=== PATIENT | female | born 1955 | race Caucasian/White ===

== ENCOUNTER 2025-05-19 16:01 | Inpatient (IN) | payer MEDICARE, OTHER, SELFPAY ==
--- OUTSIDE RECORDS SUMMARY | 2025-04-03 10:50 | XMS_ITS ---
Author Organization The [facility] in [place] Address [address] [place] [address] Care Team Providers Care Server Name Role Phone William Conde DO Primary Care Provider Unavail Robert Barnett [phone] REASON FOR VISIT Office Visit Encounters Encounter Location Date Provider Diagnosis Urology [facility] [place] [address] [place] [address] 04/03/2025 Robert Shrestha Plan Of Treatment No Information Progress Notes * Sneha SANTILLAN LDOB: 4 (70 yo F)Acc No.[id number]:04/03/2025 UNLOCKED PROGRESS NOTE Patient: Sneha POWELL Provider: Marianne Shrestha MD :1955 A ge:69 Y S ex:Female Date:04/03/2025 Address:[address] [place], [place] [id number] Pcp:William Conde DO Subjective: * Chief Complaints: * 1 . Office Visit. * Medical History: Objective: * Vitals: Assessment: Plan: * Treatment: * * Electronic signature of Mejia Shrestha MD, [id number] on 05/20/2025 at 06:04 AM EDT Sign off status: Pending Visit Status: C ANC (Cancelled) * Provider: Marianne Shrestha MD Date: 04/03/2025 Generated for Printi ng/Faxing/eTransmitting on: 05/20/2025 06:04 AM EDT
--- OUTSIDE RECORDS SUMMARY | 2025-04-03 10:50 | XMS_ITS ---
Author Organization The [facility] in [place] Address [address] [place] [address] Care Team Providers Care Surgical Physician Assistant Name Role Phone William Conde DO Primary Care Provider Unavail Robert Barnett [phone] REASON FOR VISIT Office Visit Encounters Encounter Location Date Provider Diagnosis Urology [facility] [place] [address] [place] [address] 04/03/2025 Robert Shrestha Plan Of Treatment No Information Progress Notes * Sneha SANTILLAN LDOB: 4 (70 yo F)Acc No.[id number]:04/03/2025 UNLOCKED PROGRESS NOTE Patient: Sneha POWELL Provider: Marianne Shrestha MD :1955 A ge:69 Y S ex:Female Date:04/03/2025 Address:[address] [place], [place] [id number] Pcp:William Conde DO Subjective: * Chief Complaints: * 1 . Office Visit. * Medical History: Objective: * Vitals: Assessment: Plan: * Treatment: * * Electronic signature of Mejia Shrestha MD, [id number] on 05/19/2025 at 04:07 PM EDT Sign off status: Pending Visit Status: C ANC (Cancelled) * Provider: Marianne Shrestha MD Date: 04/03/2025 Generated for Printi ng/Faxing/eTransmitting on: 05/19/2025 04:07 PM EDT
[2025-05-19] VITALS (51 sets, daily range): BP systolic 180–210; BP diastolic 80–110; PULSE 70–109; TEMP 37.1; O2SAT 92–99; BMI 25.4
--- OUTSIDE RECORDS SUMMARY | 2025-05-19 16:07 | XMS_ITS | Encounter Summary ---
Author Organization [facility] Address [address] [place] [address] Phone Care Team Providers Care Tumbler Drier Operator Name Role Phone William Conde DO Primary Care Provider + [phone] Encounter Details Date Type Department Care Team (Late Contact Info) Description 08/07/2024 Scanned Document [facility] [address] [place] [phone] Scanning, Generic Provider Social History Tobacco Use Types Packs/Day Years Used Date Smoking Tobacco: Every Day Cigarettes Smokeless Tobacco: Never Comments:Current everyday sm oker Nicotine filled electronic cigarette user Alcohol Use Standard Drinks/Week Comments Yes 7 (1 standard drink = 0.6 oz pur e alcohol) 1 shot daily PHQ-2 Answer Date Recorded Patient Health Questionnaire-2 Score 0 06/07/2023 Comments Unknown Sex and Gender Information Value Date Recorded Sex Assigned at Not on file Legal Sex Female 9:07 AM EST Gender Identity Not on file Sexual Orientation Not on file COVID-19 Exposure Response Date Recorded In the last 10 days, have yo u been in contact with someone who was confirmed or suspected to have Coronavirus/COVID-19? No / Unsure 08/02/2024 1:30 PM EST documented as of this encounter Plan of Treatment Upcoming Encounters Date Type Department Care Team (Late Contact Info) Description 05/29/2025 10:45 AM EDT Office Visit [facility] [address] [facility] [address] [place] [address] Shannon Almeida MD 917 [facility] [address] [place] [address] documented as of this encounter Procedures Procedure Name Priority Date/Time Associated Diagnosis Comments OUTSIDE LAB SCAN 08/07/2024 documented in this encounter Results * OUTSIDE LAB SCAN (08/07/2024) Narrative 08/07/2024 Ordered by an unspecified provider. Generic Provider Scanning OUTSIDE SCAN Final Result documented in this encounter Visit Diagnoses Not on filedocumented in this encounter Additional Health Concerns Assessment Noted Time A fall risk assessment has been complete d for the patient 08/02/2024 1:48 PM EST documented as of this encounter Care Teams Tumbler Drier Operator Relationship Specialty Start Date End Date William Conde DO [address] [place] [address] PCP - General Internal Medicine 08/02/24 documented as of this encounter
--- OUTSIDE RECORDS SUMMARY | 2025-05-19 16:07 | XMS_ITS | Patient Health Record ---
Author Organization The [facility] in [place] Address [address] [place] [address] Care Team Providers Care Alto Singer Name Role Phone William Conde DO Primary Care Provider Unavail able Robert Shrestha Unavailable [phone] Allergies Allergen (clinical drug ingredient) Drug/Non Drug Allergy documented on EMR Reaction Allergy Type Onset Date Status Cat dander cats (uncoded) Unknown Allergy Acti ve Codeine Sulfate *ANALGESICS - OPIOID* (uncoded) Unknown Allergy Active Mesa corn (uncoded) Unknown Allergy Activ e maple (uncoded) Unknown Allergy Acti ve Substance with penicillin structure and antibacterial mechanism of action (substance) Penicillins (uncoded) trouble breathing Allergy Active soy (uncoded) Unknown Allergy Active TraMADol HCl *ANALGESICS - OPIOID* (uncoded) Unknown Allergy Active Wheat wheat (uncoded) Unknown Allergy Acti ve doxycycline Doxycycline Hyclate does not remember reaction Drug Allergy Active Doxycycline Hyclate *TETRACYCLINES* itching Drug Allergy Active Reason For Referral No Information Medications Medication SIG (Take, Route, Frequency, Duration) Notes Start Date End Date Status Fenofibrate 145 MG Oral; Duration: 90 Days Active Irbesartan 300 MG Oral; Duration: 90 Days Active HYDROcodone-Acetaminophen 5-325 MG 1 tablet as needed Orally every 6 hrs Active Symbicort prn Active Montelukast Sodium 10 MG Oral; Duration: 90 Days Active Triamterene-HCTZ 37.5-25 MG Oral; Duration: 90 Days Acti ve traZODone HCl 150 MG Oral 1/2 tablet at bedtime Active Vitamin D Active Vitamin C Active oxyBUTYnin Chloride ER 10 MG 1 tablet Orally Once a day; Duration: 30 days 03/19/2024 Active Vitamin E Active Myrbetriq 50 MG 1 tablet Orally Once a day; Duration: 30 days 03/19/2024 Active Alendronate Sodium 70 MG 1 Oral once a week 2012 Not-Taking ZyrTEC Allergy Activ e Atorvastatin Calcium 20 MG Oral daily Not-Taking amLODIPine Besylate 5 MG Oral daily Not-Taking Aspirin 81 Active Metaxalone 800 MG 1 Oral three times daily 06/20/2013 Not-Taking Amitiza prn Active Loratadine 10 MG Oral daily N ot-Taking Baclofen prn Active Vitamin D3 2000 UNIT Oral daily Not-Taking Atenolol 50 MG Oral; Duration: 90 Days Active Metoprolol Tartrate 100 MG Oral daily Not-Taking D-Mannose 500 MG as directed Orally Daily Active Crestor Active Womens Daily Formula Oral daily Not-Taking Estradiol 0.1 MG/GM 1 gram Vaginal 2 x a week; Duration: 30 days Active Doxazosin Mesylate A ctive Social History Tobacco Use: Social History Observation Description Date Details (start date - stop date) Current Smoker NA - NA Tobacco Use/Smoking Question Answer Notes Patient is a current smoker Alcohol Screen (Audit-C) Question Answer Notes Did you have a drink containing alcohol in the p ast year? Yes How often did you have a dri nk containing alcohol in the past year? Weekly (3 points) Points 3 Interpretation Positive AUDIT-C (Standard) Question Answer Notes Did you have a drink contain ing alcohol in the past year? Yes How often did you have six o r more drinks on one occasion in the past year? Never (0 point) How many drinks did you have on a typical day when you were drinking in the past year? 1 or 2 drinks (0 point) How often did you have a dri nk containing alcohol in the past year? 2 to 3 times a week (3 points) Points 3 Interpretation Positive Problems Problem Type SNOMED Code ICD Code Onset Dates Problem Status W/U Status Risk Notes Problem Chronic cystitis (74760320) Other chronic cystitis without hematuria (N30.20) Active confirmed Problem Atrophic vaginitis (37139054) Atrophic vaginitis (N95.2) Active confirmed Plan Of Treatment No Information Insurance Providers Payer Name Payer Address Payer Phone Subscriber Number Group Number Insured Name Patient Relationship to Insured Coverage Start Date Coverage End Date MEDICARE [place] [address] [phone] [id number] Sneha James Self - patient is the insured 9 MMO MEDICARE SUPPLEMEN T [address] [place] [address] [id number] Sneha James Self - patient is the insured Medical (General) History Medical History History ICD Code Allergic Rhinitis Frequent sinus infections Hypertension Pneumonia history seasonal asthma Hx of TIA high cholesterol arthritis Covid May 2022 Fibromyalgia Other chronic cystitis without hematuria N30.20 Atrophic vaginitis N95.2 Back problems Surgical History Surgery Date(Month/Year) cholecystectomy Tubal Ligation Tonsils and adenoids Hysterectomy Cholecystectomy Cervical spine fusion Bilateral carpal tunnel releases
--- OUTSIDE RECORDS SUMMARY | 2025-05-19 16:07 | XMS_ITS | Encounter Summary ---
Author Organization [facility] Address [address] [place] [address] Phone Care Team Providers Care Collar Separator Name Role Phone William Conde DO Primary Care Provider + [phone] Encounter Details Date Type Department Care Team (Late st Contact Info) Description 11/07/2024 Scanned Document [facility] [address] [place] [phone] Scanning, Generic Provider Social History Tobacco Use Types Packs/Day Years Used Date Smoking Tobacco: Every Day Cigarettes Smokeless Tobacco: Current Comments:Nicotine filled leydi ctronic cigarette user Alcohol Use Standard Drinks/Week Comments [...] suspected to have Coronavirus/COVID-19? No / Unsure 10/28/2024 12:50 PM EST documented as of this encounter Plan of Treatment Upcoming Encounters Date Type Department Care Team (Late st Contact Info) Description 05/29/2025 10:45 AM EDT Office Visit [facility] 703 [facility] [address] [place] [address] Shannon Almeida MD [address] [facility] [address] [place] [address] documented as of this encounter Visit Diagnoses Not on filedocumented in this encounter Additional Health Concerns Assessment Noted Time A fall risk assessment has been complete d for the patient 10/28/2024 1:23 PM EST documented as of this encounter Care Teams Collar Separator Relationship Specialty Start Date End Date William Conde DO [address] [place] [address] PCP - General Internal Medicine 08/02/24 documented as of this encounter
--- OUTSIDE RECORDS SUMMARY | 2025-05-19 16:07 | XMS_ITS | Clinical Summary ---
Author Organization [employer] [facility] [employer] Address [id number] [address] [place] [address] Care Team Providers Care Concrete Batcher Name Role Phone Amaya Jackson DOWilliam Radhames Primary Care Provider Allergies Active Allergy Reactions Criticality Noted Date Comments Doxycycline Rash Low 02/10/2017 Triamcinolone Acetonide Anxiety Low 03/09/2017 Hyperactivity Penicillins Other (See Comments) High 01/17/2017 Swelling in throat Bupropion Hcl Anxiety Low 05/21/2018 States all SSRIs make her feel more depressed/anxious Medications albuterol (PROVENTIL HFA;VENTOLIN HFA) 90 mcg/actuation inhaler Inhale 2 puffs every 6 (six) hours as needed for wheezing. Active budesonide-form oterol (SYMBICORT) 160-4.5 mcg/actuation inhaler Inhale 2 puffs 2 (two) times a day. Active HYDROcodone-abrahan taminophen (NORCO) 5-325 mg per tablet Take 1 tablet by mouth every 6 (six) hours as needed for pain. Active aspirin 81 mg Take 81 mg by mouth daily. Active baclofen (LIORESAL) 10 mg tablet Take 10 mg by mouth 3 (three) times a day. Active traZODone (DESYREL) 50 mg tablet Take 50 mg by mouth nightly. Active denosumab (PROLIA) 60 mg/mL syringe injection Inject 60 mg under the skin once. Active cetirizine (ZyrTEC) 10 mg tablet Take 10 mg by mouth daily. Active lidocaine (LIDODERM) 5 % Place 1 patch on the skin as needed for pain. Remove & Discard patch within 12 hours or as directed by MD Active carvedilol (COREG) 25 mg tablet Take 25 mg by mouth 2 (two) times a day with meals. Active famotidine (PEPCID) 20 mg tablet Take 20 mg by mouth nightly as needed. Active montelukast (SINGULAIR) 10 mg tablet Take 10 mg by mouth daily. 04/09/2017 Active fenofibrate (TRICOR) 145 mg tablet Take 145 mg by mouth daily. 08/08/2017 Active irbesartan (AVAPRO) 300 mg tablet Take 300 mg by mouth daily. Active multivitamin capsule Take 1 capsule by mouth daily. 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 Encounters Date Type Department Care Team Description 04/25/2025 9:45 AM EDT - 04/25/2025 11:59 PM EDT Hospital Encounter [facility] [address] [place] [address] Sciatic radiculitis Discharge Disposition: Home 04/25/2025 9:15 AM EDT - 04/25/2025 9:44 AM EDT Hospital Encounter [facility] [address] [place] [address] 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, thoracic Discharge Disposition: Home 04/25/2025 Travel 03/03/2025 12:54 PM EDT - 03/03/2025 11:59 PM EDT Hospital Encounter [facility] [address] [place] [address] Visit for screening mammogram Discharge Disposition: Home 03/03/2025 Travel from Last 3 Months Immunizations Immunization Administration Dates Next Due COVID-19, mRNA, LNP-S, PF, 30mcg/0.3mL Dose 10/26,10/20/2020 Family History Medical History Relation Name Comments Heart disease Father Alzheimer's disease Mother Breast cancer Neg Hx Relation Name Status Comments Father Mother Social History Tobacco Use Types Packs/Day Years Used Date Smoking Tobacco: Every Day Cigarettes 1 30 Vaping/E-cigarettes Smokeless Tobacco: Never Alcohol Use Standard Drinks/Week Comments Yes 3 (1 standard drink = 0.6 oz pur e alcohol) Childcare Answer Date Recorded Childcare Unknown 02/06/2019 Employment Answer Date Recorded Employment Unknown 02/06/2019 Purpose - Life Answer Date Recorded Purpose and direction in life Unknown Comments No Sex and Gender Information Value Date Recorded Sex Assigned at Not on file Legal Sex Female 11:46 AM EDT Gender Identity Not on file Sexual Orientation Not on file Last Filed Vital Signs Vital Sign Reading Time Taken Comments Blood Pressure 171/75 09/12/2019 12:17 PM EST Pulse 62 09/12/2019 11:50 AM EST Temperature 36.1 C (97 F) 09/12/2019 10:02 AM EST Respiratory Rate 18 09/12/2019 11:50 AM EST Oxygen Saturation 9% 09/12/2019 11:50 AM EST Inhaled Oxygen Concentration - - Weight 61.2 kg (135 lb) 11/08/2023 10:24 AM EDT Height 162.6 cm (5' 4 ) 11/08/2023 10:24 AM EDT Body Mass Index 23.17 11/08/2023 10:24 AM EDT Plan of Treatment Upcoming Encounters Date Type Department Care Team (Late st Contact Info) Description 05/23/2025 9:15 AM EDT Hospital Encounter [facility] [address] [place] [address] 05/23/2025 9:45 AM EDT Appointment [facility] [address] [place] [address] Health Maintenance Due Date Last Done Comments Tobacco Counseling 1955 Depression Screening 1966 Tobacco Screening 1966 DTaP,Tdap and Td Vaccines (1 - Tdap) 1973 Zoster (Shingles) Vaccine (1 of 2) 2004 Fall Risk Screening 2019 Adult BMI Screening 11/07/2024 11/08/2023 Influenza Vaccine 04/28/2025 06/15/2022, , 06/11/2021, Additional history exists COVID-19 Vaccine Completed 01/28/2025, 01/2024, 01/05/2024, Additional history exists Medical Devices Implanted Type Area Vocational Auto Body Instructor Device Identifier Shelf Expiration Date Model / Serial / Lot Hardware Description:ACDF Procedures Procedure Name Priority Date/Time Associated Diagnosis Comments MAMM SCREENING BILATERAL W CAD Routine 03/03/2025 1:19 PM EDT Visit for screening mammogram from Last 3 Months Results * Mammography screening bilateral with CAD (03/03/2025 1:19 PM EDT) Anatomical Region Laterality Modality Breast Bilateral Mammography 03/03/2025 2:31 PM EDT Narrative 03/03/2025 2:35 PM EDT JOSUÉ SANTILLAN 1955 [id number] EXAM: MAMM SCREENING BILATERAL W CAD, 03/03/2025 12:54 PM CLINICAL INDICATIONS: Screening, Visit for screening mammogram COMPARISON: No prior studies currently available for comparison. TECHNIQUE: Bilateral digital tomosynthesis MLO and CC views of the breasts were obtained, with creation of synthetic 2D views. Computer aided detection was utilized. FINDINGS: There are scattered areas of fibroglandular density. There are no suspicious masses, calcifications, or areas of architectural distortion. Heavy arterial calcification is demonstrated. A marker from previous percutaneous biopsy is displayed in the left breast IMPRESSION: No mammographic evidence of malignancy. BI-RADS: BI-RADS 2 - Benign RECOMMENDATION: Routine screening mammogram in 1 year. RISK ASSESSMENT: TC Lifetime risk: 2.67%. The patient's reported personal and family medical history was used calculate their Tyrer-Cuzick lifetime risk of malignancy. Scores less than 20% are not considered high risk per ACR guidelines and patient should continue with the above recommendation. Finalized by Dany Burt MD on 03/03/2025 2:35 PM 2 b MAMM 1 YR FDA Accredited Performing Facility: [facility] [address] [facility] [id number] Procedure Note Dany Burt MD - 03/03/2025 JOSUÉ SANTILLAN 1955 [id number] EXAM: MAMM SCREENING BILATERAL W CAD, 03/03/2025 12:54 PM CLINICAL INDICATIONS: Screening, Visit for screening mammogram COMPARISON: No prior studies currently available for comparison. TECHNIQUE: Bilateral digital tomosynthesis MLO and CC views of the breastswere obtained, with creation of synthetic 2D views. Computer aideddetection was utilized. FINDINGS: There are scattered areas of fibroglandular density. There are no suspicious masses, calcifications, or areas of architecturaldistortion. Heavy arterial calcification is demonstrated. A marker fromprevious percutaneous biopsy is displayed in the left breast IMPRESSION: No mammographic evidence of malignancy. BI-RADS: BI-RADS 2 - Benign RECOMMENDATION: Routine screening mammogram in 1 year. RISK ASSESSMENT: TC Lifetime risk: 2.67%. The patient's reported personal and family medical history was usedcalculate their Tyrer-Cuzick lifetime risk of malignancy. Scores less than20% are not considered high risk per ACR guidelines and patient shouldcontinue with the above recommendation. Finalized by Dany Burt MD on 03/03/2025 2:35 PM 2 b MAMM 1 YR FDA Accredited Performing Facility: [facility] [address] [facility] [id number] William Conde Jr., DO IMG MAMMOGRAPHY ORDERAB LES Final Result from Last 3 Months Insurance MEDICARE [employer] Care Teams Concrete Batcher Relationship Specialty Start Date End Date William Conde Jr., DO [address] [place] [address] PCP - General Internal Medicine 01/17/17
--- OUTSIDE RECORDS SUMMARY | 2025-05-19 16:07 | XMS_ITS | Encounter Summary ---
Author Organization [facility] Address [address] [place] [address] Phone Care Team Providers Care Data Systems Analyst Name Role Phone William Conde DO Primary Care Provider + [phone] William Conde DO Primary Care Provider + [phone] Encounter Details Date Type Department Care Team (Late st Contact Info) Description 06/11/2021 Orders Only [facility] [address] [place] [address] Conversion, Onbase Social History Tobacco Use Types Packs/Day Years Used Date Smoking Tobacco: Never Assessed Comments Unknown Sex and Gender Information Value Date Recorded Sex Assigned at Not on file Legal Sex Female 9:07 AM EST Gender Identity Not on file Sexual Orientation Not on file documented as of this encounter Plan of Treatment Upcoming Encounters Date Type Department Care Team (Late st Contact Info) Description 05/29/2025 10:45 AM EDT Office Visit [facility] 703 [facility] [address] [place] [address] Shannon Almeida MD 917 [facility] [address] [place] [address] Scheduled Orders Name Type Priority Associated Diagnoses Orde r Schedule OUTSIDE LAB SCAN Lab Ordered: 06/11/2021 documented as of this encounter Visit Diagnoses Not on filedocumented in this encounter Care Teams Data Systems Analyst Relationship Specialty Start Date End Date William Conde DO PCP - General 02/17/20 08/01/24 William Conde DO [address] [place] [address] PCP - General Internal Medicine 08/02/24 documented as of this encounter
--- OUTSIDE RECORDS SUMMARY | 2025-05-19 16:07 | XMS_ITS | Clinical Summary ---
Author Organization [facility] Address [address] 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 Active baclofen (Lioresal) 10 mg tablet Take by mouth if needed. Active denosumab (Prolia) 60 mg/mL syringe Inject under the skin. inject every 6 months Active HYDROcodone-acetami nophen (Baggs) 5-325 mg tablet TAKE 1 TABLET EVERY 6 HOURS NEEDED. Active irbesartan (Avapro) 300 mg tablet Take 1 tablet (300 mg) by mouth once daily. 2 Active montelukast (Singulair) 10 mg tablet Take 1 tablet (10 mg) by mouth once daily at bedtime. Active traZODone (Desyrel) 100 mg tablet Take 1 tablet (100 mg) by mouth once daily at bedtime. Active ascorbic acid (Vitamin C) 1,000 mg tablet Take 1 tablet (1,000 mg) by mouth once daily. Active aspirin 81 mg EC tablet Take 1 tablet (81 mg) by mouth once daily. Active cholecalciferol (Vitamin D3) 25 MCG (1000 UT) tablet Take 1 tablet (1,000 Units) by mouth once daily. Active thiamine 100 mg tablet Take 1 tablet (100 mg) by mouth once daily. Active fish oil ([place]-3) 60-90-500 mg capsuleIndications: Essential hypertriglyceridemi a,Mixed hyperlipidemia Take 1 capsule (500 mg) by mouth once daily. 2000mg daily 5 Active atenolol (Tenormin) 50 mg tabletIndications:B enign essential hypertension Take 1 tablet (50 mg) by mouth once daily. 90 tablet 3 5 10/29/19 Active doxazosin (Cardura) 4 mg tabletIndications:E ssential hypertriglyceridemi a,Mixed hyperlipidemia,Curr ent every day smoker,Body mass index (BMI) 23.0-23.9, adult,Medication course changed Take 1 tablet (4 mg) by mouth once daily at bedtime. 90 tablet 3 5 10/29/19 26 Active fenofibrate (Tricor) 145 mg tabletIndications:E ssential hypertriglyceridemi a,Benign essential hypertension,Mixed hyperlipidemia,Enco unter to discuss test results,Pre-diabete s,Current every day smoker,Body mass index (BMI) 23.0-23.9, adult,Medication course changed,Elevated coronary artery calcium score,Other fatigue Take 1 tablet (145 mg) by mouth once daily. 90 tablet 3 5 10/29/19 Active rosuvastatin (Crestor) 5 mg tabletIndications:E ssential hypertriglyceridemi a,Benign essential hypertension,Mixed hyperlipidemia,Enco unter to discuss test results,Pre-diabete s,Current every day smoker,Body mass index (BMI) 23.0-23.9, adult,Medication course changed,Elevated coronary artery calcium score,Other fatigue Take 1 tablet (5 mg) by mouth once daily. 90 tablet 3 5 10/29/19 Active triamterene-hydroch lorothiazid (Maxzide-25) 37.5-25 mg tabletIndications:B enign essential hypertension Take 1 tablet by mouth once daily. 90 tablet 3 5 10/29/19 Active Active Problems Problem Noted Date Diagnosed Date Encounter to discuss test results 10/28/2024 Pre-diabetes 10/28/2024 Elevated coronary artery calcium score 5 Other fatigue 10/28/2024 Resistant hypertension 08/02/2024 Mixed hyperlipidemia 08/02/2024 Encounter to establish care with new doctor 01/2024 Medication course changed 08/02/2024 Benign essential hypertension 05/03/2023 Current every day smoker 05/03/2023 Essential hypertriglyceridemia 05/03/2023 Body mass index (BMI) 23.0-23.9, adult 3 Resolved Problems Problem Noted Date Diagnosed Date Resolved Date Snores 10/28/2024 10/28/2024 Immunizations Immunization Administration Dates Next Due Flu vaccine (IIV4), preserva tive free *Check age/dose* 08/04/2017,05/28/2017 Flu vaccine, quadrivalent, recombinant, preservative free, adult (FLUBLOK) 07/12/2019,07/11/2018 Flu vaccine, trivalent, pres ervative free, HIGH-DOSE, age 65y+ (Fluzone) 06/15/2022,06/25/2021,06/11/2021,05/28,05/05/2020,07/28/2019,06/06/2019 Flu vaccine, trivalent, pres ervative free, age 6 months and greater (Fluarix/Fluzone/Flulaval) 06/29/2016,07/08/2015,05/31/2012 Hepatitis B vaccine, adult * Check Product/Dose* 08/08/2008,03/06/2008,02/05/2008 Influenza Whole 06/07/2010 Influenza, injectable, quadr ivalent, preservative free, pediatric 06/23/2014 Pfizer COVID-19 vaccine, biv alent, age 12 years and older (30 mcg/0.3 mL) 09/08/2022 Pfizer Bryan Cap SARS-CoV-2 01/31/2022 Pneumococcal conjugate vacci ne, 13-valent (PREVNAR 13) 07/28/2019,07/12/2019 Pneumococcal polysaccharide vaccine, 23-valent, age 2 years and older (PNEUMOVAX 23) 10/28/2021,11/05/2019,07/28/2018,06/30,05/31/2012 Family History Medical History Relation Name Comments Arthritis Father degenerative CABG Father X4 Dementia Mother Hypertension Mother Skin cancer Mother Cervical cancer Sister Diabetes Sister Hypertension Sister high triglycerides Sister Relation Name Status Comments Father Mother Sister Social History Tobacco Use Types Packs/Day Years Used Date Smoking Tobacco: Every Day Cigarettes Smokeless Tobacco: Current Tobacco Cessation:Ready to Q uit: Not Asked; Counseling Given: Yes Comments:Nicotine filled electronic cigarette user Alcohol Use Standard [...] Sign Reading Time Taken Comments Blood Pressure 138/78 10/28/2024 1:22 PM EST Pulse 64 10/28/2024 1:22 PM EST Temperature - - Respiratory Rate - - Oxygen Saturation - - Inhaled Oxygen Concentration - - Weight 69.4 kg (153 lb) 10/28/2024 1:22 PM EST Height 162.6 cm (5' 4 ) 10/28/2024 1:22 PM EST Body Mass Index 26.26 10/28/2024 1:22 PM EST Plan of Treatment Upcoming Encounters Date Type Department Care Team (Late st Contact Info) Description 05/29/2025 10:45 AM EDT Office Visit [address] [place] [address] Shannon Almeida MD [address] [facility] [address] [place] [address] Health Maintenance Due Date Last Done Comments CT Colonography 1955 Colonoscopy 1955 Colorectal Cancer Screening 1955 Echocardiogram 1955 FIT-DNA (Cologuard) 1955 FIT 1955 Lipid Panel 1955 Sigmoidoscopy 1955 MMR Vaccines (1 of 1 - Standard series) 1955 Diabetes Screening 1972 Hepatitis C Screening 1972 DTaP/Tdap/Td Vaccines (1 - Tdap) 1976 Zoster Vaccines (1 of 2) 2004 Creatinine Level 02/16/2021 02/17/2020 Potassium Level 02/16/2021 02/17/2020 Bone Density Scan 06/19/2022 06/19/2020, 06/19/2020 Medicare Annual Wellness Visit (AWV) 11/03/2023 11/01/2022, 11/01/2021, 05/05/2020 Mammogram 11/07/2024 11/08/2023, 10/26, 09/28/2022, Additional history exists COVID-19 Vaccine ( season) 2025 08/02/2024, 01/05/2024, 06/11/2023, Additional history exists Influenza Vaccine (#1) 2025 , 06/25/2021, 06/11/2021, Additional history exists RSV High Risk: (Elderly (60+) or Population) (1 - 1-dose 75+ series) 2029 Hepatitis B Vaccines Completed 08/08/2008, 03/06/2008, 02/05/2008 Pneumococcal Vaccine Completed 10/28/2021, 11/05/2019, 07/28/2019, Additional history exists HIB Vaccines Aged Out No longer eligi ble based on patient's age to complete this topic HPV Vaccines Aged Out No longer eligi ble based on patient's age to complete this topic Hepatitis A Vaccines Aged Out No long er eligible based on patient's age to complete this topic IPV Vaccines Aged Out No longer eligi ble based on patient's age to complete this topic Meningococcal Vaccine Aged Out No michelle jennifer eligible based on patient's age to complete this topic Rotavirus Vaccines Aged Out No longer eligible based on patient's age to complete this topic Procedures Procedure Name Priority Date/Time Associated Diagnosis Comments ELECTROLYTE PANEL Routine 02/17/2020 12: 02 PM EDT CREATININE Routine 02/17/2020 12:02 PM EDT from Last 3 Months or Most Recently Relevant to Health Maintenance Results * Creatinine (02/17/2020 12:02 PM EDT) Creatinine 0.92 0.50 - 1.05 mg/dL [facility] GLOMERULAR FILTRATION RATE-NON >60 >60 mL/min/1.7 3m2 [facility] GLOMERULAR FILTRATION RATE- >60 >60 mL/min/1.7 3m2 [facility] Comment: CALCULATIONS OF ESTIMATED GFR ARE PERFORMED USING THE MDRD STUDY EQUATION FOR THE IDMS-TRACEABLE CREATININE METHODS. CLIN CHEM 2007;53:766-72 02/17/2020 12:0 2 PM EDT 02/17/2020 5:41 PM EDT Hiram Leyva MD LAB BLOOD ORDERABLES Final Result [facility] * (ABNORMAL) Electrolyte Panel (02/17/2020 12:02 PM EDT) Sodium 131(L) 136 - 145 mmol/L [facility] Potassium 3.9 3.5 - 5.3 mmol/L [facility] Chloride 93(L) 98 - 107 mmol/L [facility] Bicarbonate 30 21 - 32 mmol/L [facility] Anion Gap 12 10 - 20 mmol/L [facility] 02/17/2020 12:0 2 PM EDT 02/17/2020 5:41 PM EDT Hiram Leyva MD LAB BLOOD ORDERABLES Final Result [facility] from Last 3 Months or Most Recently Relevant to Health Maintenance Insurance MEDICARE PART A AND B [employer] SUPPLEMENT MEDICARE PART A AND [employer] [place] MEDICARE SUPPLEMENT Care Teams Deicer Kit Assembler Relationship Specialty Start Date End Date William Conde DO [address] [place] [id number] PCP - General Internal Medicine 08/02/24
--- NOTE | 2025-05-19 16:34 | ECG_ITS ---
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 Measurements Intervals [place] Rate: 82 P: 53 VA: 174 QRS: 35 QRSD: 84 T: 28 QT: 394 QTc: 433 Interpretive Statements 1100 Sinus rhythm 6220 Possible left atrial enlargement 9130 borderline ECG No previous ECG available for comparison Electronically Signed On 05-19-2025 17:18:10 EDT by REDD العراقي M.D.
[2025-05-19] MEDS: HYDRALAZINE HCL 20 MG/ML VIAL 10 MG IVP (16:58)
[2025-05-19 17:02] LABS: Hematocrit 44.1 % (36.0-48.0); Hemoglobin 15.6 g/dL (12.0-16.0); Immature Granulocytes Abs Auto 0.05 10^3/uL (0.00-0.03); Immature Granulocytes Pct Auto 0.4 % (0.0-0.5); Lymphocytes Absolute Auto 1.6 10^3/uL (1.2-3.8); Mean Corpuscular HGB Conc 35.4 g/dL (29.9-35.2); Mean Corpuscular Hemoglobin 30.1 pg (26.7-34.0); Mean Corpuscular Volume 85.0 fL (81.0-99.0); Platelet Count 276 10^3/uL (150-450); Red Blood Count 5.19 10^6/uL (4.20-5.40); White Blood Count 12.7 10^3/uL (4.0-11.0)
--- NOTE | 2025-05-19 17:05 | CT_ITS ---
The [address] [address] Patient Name: JOSUÉ SANTILLAN MRN: [id number] date: 1955 Sex: F Assigned Patient Location: ED.MAIN Current Patient Location: ED.MAIN Accession/Order Number: [id number] Exam Date: 05/19/2025 17:02 Report Date: 05/19/2025 17:24 At the request of: PASHA MENDEZ MD Procedure: CT head/brain wo con CT BRAIN WITHOUT CONTRAST: CLINICAL HISTORY: headache COMPARISON: None TECHNIQUE: Contiguous axial unenhanced images were obtained through the brain. This CT exam was performed using one or more following dose reduction techniques: Automated exposure control, adjustment of the mA and/or kV according to patient size, or use of iterative reconstruction technique. FINDINGS: There is no evidence of midline shift, intra or extra-axial fluid collection, hemorrhage or CT evidence of acute large vascular distribution stroke. Mild periventricular subcortical hypoattenuation suggestive of chronic small vessel ischemic disease. Intracranial vascular calcification. Visualized intraorbital contents appear unremarkable. Mild paranasal sinus thickening. No air-fluid levels. The surrounding soft tissues are normal. CT/CT head/brain wo con IMPRESSION: NO ACUTE INTRACRANIAL ABNORMALITY. CHRONIC MICROVASCULAR CHANGES. Impression dictated by: Olivier Gallardo M.D. 05/19/2025 5:24 PM Dictation Location: [place] [address] Electronically authenticated by: [id number] Y Date: 05/19/2025 17:24
--- NOTE | 2025-05-19 17:11 | ED_ITS ---
HPI HPI - General Adult General Chief complaint: Headache Stated complaint: Possible CVA Time Seen by Provider: 05/19/25 16:25 Source: patient Mode of arrival: walk-in Limitations: no limitations History of Present Illness HPI narrative: The patient is a 70 years old female who is coming to the ER after she was evaluated in urgent care for headache and apparently was found to have elevated blood pressure above 200, the patient mentioned that she also has been having some cough, she has history of smoking cigarette less than 1 pack/day. The patient also have a history of asthma and she used inhaler on a daily basis Patient is complaining also shortness of breath in addition to the right sided headache, there is no nausea no vomiting and the patient have a feeling that she is thirsty all the time There is no chest pain or chest pressure Related Data Allergies Allergy/AdvReac Type Severity Reaction Status Date / Time carvedilol (From Coreg) Allergy Severe Swelling Verified 05/19/25 17:03 of Lip/Tongue/Throat doxycycline Allergy Severe Swelling Verified 05/19/25 17:02 of Lip/Tongue/Throat gabapentin Allergy Severe Swelling Verified 05/19/25 17:03 of Lip/Tongue/Throat Penicillins Allergy Severe Swelling Verified 05/19/25 17:03 of Lip/Tongue/Throat Opioid HPI Opioid Management Most Recent Opioid Data: Last Pain Scale 8 Today, 17:26 Last MAR Pain Assessment Today, 17:26 Review of Systems ROS Status of ROS 10 or more systems reviewed and unremark able except as noted in history and below PFSH PFSH Social History Little interest or pleasure in doing things: not at all Feeling down, depressed, or hopeless: not at all Exam Narrative Exam Narrative: Nurses notes and vital signs reviewed and patient is not hypoxic. General: Well-appearing and in no apparent distress. Skin: Warm, dry, no pallor noted. No rash. Head: Normocephalic, atraumatic. Neck: Supple, non-tender. Eye: Pupils are equal, round and EOMI. No scleral icterus. Ears, Nose, Mouth, and Throat: There is a bilateral ear cerumen on ear examination Cardiovascular: Regular Rate and Rhythm without murmur, gallop or rub. Respiratory: No accessory muscle use or respiratory distress. Lungs are clear to auscultation, no wheezing, rales or rhonchi Chest Wall: no tenderness Back: No midline thoracic or lumbar vertebral tenderness. No CVA tenderness Musculoskeletal: normal ROM, no calf or popliteal tenderness, no lower extremity edema/swelling GI: Abdomen is soft, non-distended. Normal bowel sounds. No masses appreciated. No tenderness to palpation. No rebound, guarding, or rigidity noted. Neurological: A&O x4. No cranial nerve dysfunction observed. The patient is noted to be very anxious Constitutional Vital Signs, click to edit/add: Last Vital Signs Temp 98.7 F 05/19/25 16:18 Pulse 108 H 05/19/25 18:16 Resp 16 05/19/25 18:16 BP 200/90 H 05/19/25 18:16 Pulse Ox 97 05/19/25 18:16 O2 Del Method Room Air 05/19/25 18:16 Course Vital Signs Vital signs: Vital Signs Temperature 98.7 F 05/19/25 16:18 Pulse Rate 92 H 05/19/25 16:18 Respiratory Rate 16 05/19/25 16:18 Blood Pressure 210/80 H 05/19/25 16:18 Pulse Oximetry 96 05/19/25 16:18 Oxygen Delivery Method Room Air 05/19/25 16:18 Temperature 98.7 F 05/19/25 16:18 Pulse Rate 108 H 05/19/25 18:16 Respiratory Rate 16 05/19/25 18:16 Blood Pressure 200/90 H 05/19/25 18:16 Pulse Oximetry 97 05/19/25 18:16 Oxygen Delivery Method Room Air 05/19/25 18:16 Medical Decision Making MDM Narrative Medical decision making narrative: The patient EKG showing sinus rhythm with a heart rate [address] elevation or depression but there is only T wave inversion in lead III The patient CBC shows white blood cells of 12 and the chemistry was showing some hyponatremia with a sodium of 127 and potassium 3.1 chloride is 89 Presenting close the patient came with headache and blood pressure with elevated above 200 initially she was provided with hydralazine after which her blood pressure responded to 190 systolic It was noted that the patient is very anxious and she is sometimes pounding her leg against the floor saying that she is very anxious I did give initially the patient some Toradol and she took her Percocet that she takes at home But I also provided the patient with Valium 2.5 mg after I noted that her blood pressure is staying elevated and with the fact that she is very anxious is not helping controlling her blood pressure CT of the head showed no acute pathology Chest x-ray shows possible mild pulmonary edema although the patient does not have any findings on auscultation at the moment no leg edema Awaiting the blood pressure to respond to treatment in addition to repeated troponin and BNP as well as BMP results patient care transferred to Dr. Smith Lab Data Labs: Lab Results 05/19/25 Range/Units 16:50 WBC 12.7 H (4.0-11.0) 10^3/uL RBC 5.19 (4.20-5.40) 10^6/uL Hgb 15.6 (12.0-16.0) g/dL Hct 44.1 (36.0-48.0) % MCV 85.0 (81.0-99.0) fL MCH 30.1 (26.7-34.0) pg MCHC 35.4 H (29.9-35.2) g/dL RDW 13.8 (11.0-15.0) % Plt Count 276 (150-450) 10^3/uL MPV 9.7 (9.5-13.5) fL Neut % (Auto) 81.1 H (43.0-75.0) % Lymph % (Auto) 12.9 L (20.5-60.0) % Stanton % (Auto) 5.4 (1.7-12.0) % Eos % (Auto) 0.0 L (0.9-7.0) % Baso % (Auto) 0.2 (0.2-2.0) % Neut # (Auto) 10.3 H (1.4-6.5) 10^3/uL Lymph # (Auto) 1.6 (1.2-3.8) 10^3/uL Stanton # (Auto) 0.7 (0.3-0.8) 10^3/uL Eos # (Auto) 0.0 (0.0-0.7) 10^3/uL Baso # (Auto) 0.0 (0.0-0.1) 10^3/uL Abs Immat Gran (auto) 0.05 H (0.00-0.03) 10^3/uL Imm/Tot Granulo (auto) 0.4 (0.0-0.5) % PT 10.9 (9.0-11.6) sec INR 1.03 Sodium 127 L (136-145) mmol/L Potassium 3.1 L (3.5-5.1) mmol/L Chloride 89 L (98-107) mmol/L Carbon Dioxide 30.7 (21.0-32.0) mmol/L Anion Gap 10.4 BUN 17.0 (7.0-18.0) mg/dL Creatinine 0.93 (0.55-1.02) mg/dL Est GFR ( Amer) >60 (>=60 mL/min/1.73m^2) Est GFR (Non-Af Amer) 59 L (>=60 mL/min/1.73m^2) BUN/Creatinine Ratio 18.3 Glucose 111 H (74-106) mg/dL Calcium 9.8 (8.5-10.1) mg/dL Total Bilirubin 1.0 (0.2-1.0) mg/dL AST 24 (15-37) U/L ALT 27 (14-59) U/L Alkaline Phosphatase 49 (46-116) U/L Troponin I High Sens 17.2 (4.0-51.3) pg/mL Total Protein 8.2 (6.4-8.2) g/dL Albumin 4.8 (3.4-5.0) g/dL Globulin 3.4 g/dL Albumin/Globulin Ratio 1.4 Discharge Plan Discharge Patient Disposition: Still a Patient
[2025-05-19 17:21] LABS: INR 1.03; Prothrombin Time 10.9 sec (9.0-11.6)
[2025-05-19 17:26] LABS: Alanine Aminotransferase 27 U/L (14-59); Albumin Globulin Ratio 1.4; Albumin Level 4.8 g/dL (3.4-5.0); Alkaline Phosphatase 49 U/L (46-116); Anion Gap 10.4; Aspartate Amino Transferase 24 U/L (15-37); Blood Urea Nitrogen 17.0 mg/dL (7.0-18.0); Calcium 9.8 mg/dL (8.5-10.1); Carbon Dioxide 30.7 mmol/L (21.0-32.0); Chloride 89 mmol/L (98-107); Estimated GFR (African America >60 (>=60 mL/min/1.73m^2); Estimated GFR (Non-African Ame 59 (>=60 mL/min/1.73m^2); Globulin 3.4 g/dL; Glucose 111 mg/dL (74-106); Potassium 3.1 mmol/L (3.5-5.1); Sodium 127 mmol/L (136-145); Total Protein 8.2 g/dL (6.4-8.2)
[2025-05-19] MEDS: KETOROLAC TROMETHAMINE 30 MG/ML VIAL 15 MG IVP (17:26)
--- NOTE | 2025-05-19 17:35 | XR_ITS ---
The [address] [address] Patient Name: JOSUÉ SANTILLAN MRN: [id number] date: 1955 Sex: F Assigned Patient Location: ER Current Patient Location: ED.MAIN Accession/Order Number: [id number] Exam Date: 05/19/2025 17:30 Report Date: 05/19/2025 18:21 At the request of: PASHA MENDEZ MD Procedure: XR chest 1V Single AP view CHEST: CLINICAL HISTORY: sob and htn COMPARISON: None Mildly enlarged cardiomediastinal silhouette. Minor central hilar congestion. Mild interstitial edema. Lungs otherwise clear. No effusion or pneumothorax. XR/XR chest 1V IMPRESSION: Minimal pulmonary edema/congestion. No acute airspace disease. Impression dictated by: Olivier Gallardo M.D. 05/19/2025 6:21 PM Dictation Location: [place] [address] Electronically authenticated by: [id number] Y Date: 05/19/2025 18:21
[2025-05-19] MEDS: DIAZEPAM 10 MG/2 ML SYRINGE 2.5 MG IV (18:51)
[2025-05-19 19:25] LABS: Anion Gap 11.2; Blood Urea Nitrogen 17.0 mg/dL (7.0-18.0); Calcium 9.8 mg/dL (8.5-10.1); Carbon Dioxide 30.6 mmol/L (21.0-32.0); Chloride 90 mmol/L (98-107); Estimated GFR (African America >60 (>=60 mL/min/1.73m^2); Estimated GFR (Non-African Ame 59 (>=60 mL/min/1.73m^2); Glucose 117 mg/dL (74-106); Sodium 129 mmol/L (136-145)
[2025-05-19 19:27] LABS: NT Pro B Type Natriuretic Pept 878.0 pg/mL (<=900.0); Potassium 2.8 mmol/L (3.5-5.1)
[2025-05-19] MEDS: CLONIDINE HCL 0.1 MG TABLET PO (20:39)
[2025-05-19] MEDS: POTASSIUM CHLORIDE 10 MEQ ER TABLET 40 MEQ PO (20:39)
[2025-05-19] MEDS: LABETALOL HCL 20 MG/4 ML SYRINGE 10 MG IVP ×2 (21:32→23:06)
[2025-05-20] VITALS (33 sets, daily range): BP systolic 155–218; BP diastolic 74–106; PULSE 67–92; TEMP 36.4–36.8; O2SAT 93–97; BMI 26.4
[2025-05-20] MEDS: LABETALOL HCL 100 MG/20 ML MDV 10 MG IVP (00:12)
--- NOTE | 2025-05-20 00:17 | ED.GENADUL1 ---
HPI HPI - General Adult General Chief complaint: Headache Stated complaint: Possible CVA Time Seen by Provider: 05/19/25 16:25 Source: patient Mode of arrival: walk-in Limitations: no limitations Related Data Home Medications ?Medication ?Instructions ?Recorded ?Confirmed atenolol 50 mg tablet 50 mg PO Q24H 05/20/25 05/20/25 baclofen 10 mg tablet 10 mg PO .Q12 05/20/25 05/20/25 fenofibrate nanocrystallized 145 145 mg PO DAILY 05/20/25 05/20/25 mg tablet irbesartan 300 mg tablet 300 mg PO DAILY 05/20/25 05/20/25 montelukast 10 mg tablet 10 mg PO PRN 05/20/25 05/20/25 oxycodone-acetaminophen 10 mg-325 1 tab PO Q6H 05/20/25 05/20/25 mg tablet rosuvastatin 5 mg tablet 5 mg PO DAILY 05/20/25 05/20/25 trazodone 100 mg tablet 100 mg PO DAILY 05/20/25 05/20/25 triamterene 37.5 1 tab PO DAILY 05/20/25 05/20/25 mg-hydrochlorothiazide 25 mg tablet Allergies Allergy/AdvReac Type Severity Reaction Status Date / Time carvedilol (From Coreg) Allergy Severe Swelling Verified 05/19/25 17:03 of Lip/Tongue/Throat doxycycline Allergy Severe Swelling Verified 05/19/25 17:02 of Lip/Tongue/Throat gabapentin Allergy Severe Swelling Verified 05/19/25 17:03 of Lip/Tongue/Throat Penicillins Allergy Severe Swelling Verified 05/19/25 17:03 of Lip/Tongue/Throat Opioid HPI Opioid Management Most Recent Opioid Data: Last Pain Scale 8 05/19/25, 17:26 Last Pain Assessment Today, 02:00 Last MAR Pain Assessment 05/19/25, 17:26 Last ORT Total Score 1 Today, 01:37 Last ORT Risk Category Low Risk Today, 01:37 [facility] Medical History (Updated 05/20/25 @ 02:56 by Anju Hadley) Asthma ?J45.909 - Unspecified asthma, uncomplicated (ICD-10) Hx of deep venous thrombosis ?Z86.718 - Personal history of other venous thrombosis and embolism (ICD-10) History of TIA (transient ischemic attack) ?Z86.73 - Personal history of transient ischemic attack (TIA), and cerebral infarction without residual deficits (ICD-10) Surgical History (Updated 05/20/25 @ 01:34 by Anju Hadley) History of cholecystectomy ?Z90.49 - Acquired absence of other specified parts of digestive tract (ICD-10) H/O hysterectomy with oophorectomy History of appendectomy ?Z90.49 - Acquired absence of other specified parts of digestive tract (ICD-10) Family History (Updated 05/20/25 @ 01:34 by Anju Hadley) Other Family history of CHF (congestive heart failure) Family history of cancer Family history of hypertension Social History (Updated 05/20/25 @ 01:37 by Anju Hadley) Within the past year, how often did you have a drink containing alcohol: monthly or less Smoking status: Current every day smoker Non-prescribed substance use: denies use Previous occupational history: retired Highest level of school completed/degree received: Bachelor's degree In a typical week, how many times do you talk on the telephone with family, friends, or neighbors: 3 or more times per week How often do you get together with friends or relatives: 3 or more times per week Little interest or pleasure in doing things: not at all Feeling down, depressed, or hopeless: not at all Feel stressed/tense/nervous/anxious/difficulty sleeping: not at all Do you think of yourself as: straight/heterosexual Gender Identity: female Exam Constitutional Vital Signs, click to edit/add: Last Vital Signs Temp 97.8 F 05/20/25 03:13 Pulse 77 05/20/25 06:00 Resp 16 05/20/25 03:13 BP 155/88 H 05/20/25 04:11 Pulse Ox 97 05/20/25 03:13 O2 Del Method Room Air 05/20/25 03:13 Course Vital Signs Vital signs: Vital Signs Temperature 98.7 F 05/19/25 16:18 Pulse Rate 92 H 05/19/25 16:18 Respiratory Rate 16 05/19/25 16:18 Blood Pressure 210/80 H 05/19/25 16:18 Pulse Oximetry 96 05/19/25 16:18 Oxygen Delivery Method Room Air 05/19/25 16:18 Temperature 97.8 F 05/20/25 03:13 Pulse Rate 77 05/20/25 06:00 Respiratory Rate 16 05/20/25 03:13 Blood Pressure 155/88 H 05/20/25 04:11 Pulse Oximetry 97 05/20/25 03:13 Oxygen Delivery Method Room Air 05/20/25 03:13 Medical Decision Making Lab Data Labs: Lab Results 05/19/25 05/19/25 Range/Units 16:50 18:50 WBC 12.7 H (4.0-11.0) 10^3/uL RBC 5.19 (4.20-5.40) 10^6/uL Hgb 15.6 (12.0-16.0) g/dL Hct 44.1 (36.0-48.0) % MCV 85.0 (81.0-99.0) fL MCH 30.1 (26.7-34.0) pg MCHC 35.4 H (29.9-35.2) g/dL RDW 13.8 (11.0-15.0) % Plt Count 276 (150-450) 10^3/uL MPV 9.7 (9.5-13.5) fL Neut % (Auto) 81.1 H (43.0-75.0) % Lymph % (Auto) 12.9 L (20.5-60.0) % Florence % (Auto) 5.4 (1.7-12.0) % Eos % (Auto) 0.0 L (0.9-7.0) % Baso % (Auto) 0.2 (0.2-2.0) % Neut # (Auto) 10.3 H (1.4-6.5) 10^3/uL Lymph # (Auto) 1.6 (1.2-3.8) 10^3/uL Florence # (Auto) 0.7 (0.3-0.8) 10^3/uL Eos # (Auto) 0.0 (0.0-0.7) 10^3/uL Baso # (Auto) 0.0 (0.0-0.1) 10^3/uL Abs Immat Gran (auto) 0.05 H (0.00-0.03) 10^3/uL Imm/Tot Granulo (auto) 0.4 (0.0-0.5) % PT 10.9 (9.0-11.6) sec INR 1.03 D-Dimer 0.38 (<=0.59) mg/L FEU Sodium 127 L 129 L (136-145) mmol/L Potassium 3.1 L 2.8 L* (3.5-5.1) mmol/L Chloride 89 L 90 L (98-107) mmol/L Carbon Dioxide 30.7 30.6 (21.0-32.0) mmol/L Anion Gap 10.4 11.2 BUN 17.0 17.0 (7.0-18.0) mg/dL Creatinine 0.93 0.94 (0.55-1.02) mg/dL Est GFR ( Amer) >60 >60 (>=60 mL/min/1.73m^2) Est GFR (Non-Af Amer) 59 L 59 L (>=60 mL/min/1.73m^2) BUN/Creatinine Ratio 18.3 18.1 Glucose 111 H 117 H (74-106) mg/dL Calcium 9.8 9.8 (8.5-10.1) mg/dL Total Bilirubin 1.0 (0.2-1.0) mg/dL AST 24 (15-37) U/L ALT 27 (14-59) U/L Alkaline Phosphatase 49 (46-116) U/L Troponin I High Sens 17.2 19.2 (4.0-51.3) pg/mL NT-Pro-B Natriuret Pep 878.0 (<=900.0) pg/mL Total Protein 8.2 (6.4-8.2) g/dL Albumin 4.8 (3.4-5.0) g/dL Globulin 3.4 g/dL Albumin/Globulin Ratio 1.4 Discharge Plan Discharge Chief Complaint: Headache Clinical Impression: Headache, CHF (congestive heart failure), Hypertensive urgency Patient Disposition: Admitted as Observation Discharge Date/Time: 05/20/25 01:25
--- NOTE | 2025-05-20 01:47 | CA_ITS ---
Patient Name: JOSUÉ SANTILLAN MR#: [id number] : 1955 Exam Date: 05/20/2025 Ordering Doctor: SAYRA ROBERTSON ECHOCARDIOGRAM REPORT PROCEDURE: CA ECHO DOPPLER COMPLETE INDICATIONS: CHF, smoker, hypertension COMPARISON: None. DESCRIPTION: COMPLETE ECHOCARDIOGRAM Real-time transthoracic echocardiography with 2D, M-mode, spectral and color flow Doppler performed. QUALITY: Technical quality was good. LEFT VENTRICLE: Small chamber size. Severe concentric left ventricular hypertrophy. Hyperdynamic systolic function. LV EF: Hyperdynamic left ventricular ejection fraction, (75%). DIASTOLIC: Grade I diastolic dysfunction. Doppler data indicate elevated left-atrial filling pressures. ATRIAL SEPTUM: Visually appears intact. LEFT ATRIUM: Mild dilatation. RIGHT ATRIUM: Normal chamber size. RIGHT VENTRICLE: Normal chamber size. Normal right ventricular systolic function. TRICUSPID VALVE: Normal mobility and thickness. No stenosis with no regurgitation. Unable to assess right-sided pressures due to lack of measurable tricuspid regurgitation. MITRAL VALVE: Normal mobility and thickness. No evidence of mitral valve stenosis. Mild mitral annular calcification. Trivial mitral regurgitation. AORTIC VALVE: Normal trileaflet appearance. No visible sclerosis. Normal leaflet mobility. No evidence of aortic valve stenosis. AORTIC ROOT: Normal diameter and appearance, measuring 3.5 cm. Ascending aorta is normal in size, measuring 2.7 cm. PULMONIC VALVE: Normal thickness and mobility. No stenosis. No regurgitation. PERICARDIUM: No evidence of pericardial effusion. IVC: Collapses with inspiration. IVC is normal in size. PLEURA: CONCLUSION: 1. The left ventricle exhibits severe concentric hypertrophy with hyperdynamic contractility. The ventricular cavity is small. Estimated LVEF is 75%. 2. Normal right ventricular size and systolic function. 3. No significant valvular dysfunction. 4. Grade 1 diastolic dysfunction. Doppler data indicate elevated left atrial filling pressures. 5. Unable to assess right-sided pressures due to lack of measurable tricuspid regurgitation. Adult Echocardiography Procedure Report Left Ventricle LVEDD (3.7 - 5.6 cm): 3.58 cm LVESD (2.2 - 4.0 cm): 1.92 cm LVIVS thickness (0.6 - 1.2 cm): 1.77 cm LVPW thickness (0.5 - 1.0 cm): 1.38 cm e': 0.04 m/s E - e': 17.05 LVOT Max Gradient: 4.18 mm[Hg] LVOT Area (cm2): 1.02 m/s Peak Velocity (LVOT): 1.02 m/s Mean Velocity (LVOT): 0.69 m/s LVOT Diameter 2.04 cm Left Ventricular Ejection Fraction: 75 % Left Atrium LA Volume Index (2D A2C): 43.26 ml/m2 Left Atrium Systolic Dimension: 2.84 cm Mitral Valve MV E to A Ratio: 0.52 Mitral Valve A-Wave Peak Velocity: 1.39 m/s Mitral Valve E-Wave Peak Velocity: 0.73 m/s Right Ventricle Aorta AO Root Diam: 3.52 cm Ascending Ao Diam: 2.72 cm Aortic Valve AoV Area ([place]): 2.99 cm2, 2.99 cm2 AoV Area (VTI): 2.96 cm2, 2.96 cm2 Peak Velocity(Antegrade Flow): 1.12 m/s Peak Gradient(Antegrade Flow): 4.98 mm[Hg] Mean Velocity(Antegrade Flow): 0.79 m/s Mean Gradient(Antegrade Flow): 2.86 mm[Hg] Velocity Time Integral: 27.39 cm Tricuspid Valve Pulmonic Valve Peak Velocity: 0.95 m/s Peak Gradient: 3.64 mm[Hg] Right Atrium Right Atrium Systolic Pressure: 39.30 ml, 39.30 ml Dictated by: Volodymyr Vargas M.D. on 05/20/2025 at 14:30 Approved by: Volodymyr Vargas M.D. on 05/20/2025 at 14:35
[2025-05-20 02:12] LABS: Glucose Urine UA NEGATIVE (NEGATIVE)
[2025-05-20] MEDS: ENOXAPARIN SODIUM 40 MG/0.4 ML SYRINGE SUBQ ×2 (02:22→08:55)
[2025-05-20] MEDS: HYDRALAZINE HCL 20 MG/ML VIAL IVP (02:22)
[2025-05-20] MEDS: ASPIRIN 325 MG TABLET.DR PO ×2 (02:23→08:55)
[2025-05-20] MEDS: FUROSEMIDE 40 MG/4 ML VIAL IVP (02:23)
[2025-05-20] MEDS: POTASSIUM CHLORIDE 10 MEQ ER TABLET 30 MEQ PO (02:23)
[2025-05-20] MEDS: ATENOLOL 50 MG TABLET PO (02:23)
[2025-05-20] MEDS: SPIRONOLACTONE 25 MG TABLET PO ×3 (02:23→21:17)
[2025-05-20 02:26] LABS: Cast Seen? NONE SEEN #/LPF (NONE SEEN); Crystals Seen? None Seen #/HPF (None Seen); Urine Culture Indicated YES-FRMC
[2025-05-20 05:59] LABS: Hematocrit 43.9 % (36.0-48.0); Hemoglobin 15.5 g/dL (12.0-16.0); Immature Granulocytes Abs Auto 0.08 10^3/uL (0.00-0.03); Immature Granulocytes Pct Auto 0.4 % (0.0-0.5); Lymphocytes Absolute Auto 1.1 10^3/uL (1.2-3.8); Mean Corpuscular HGB Conc 35.3 g/dL (29.9-35.2); Mean Corpuscular Hemoglobin 30.0 pg (26.7-34.0); Mean Corpuscular Volume 84.9 fL (81.0-99.0); Platelet Count 279 10^3/uL (150-450); Red Blood Count 5.17 10^6/uL (4.20-5.40); White Blood Count 18.7 10^3/uL (4.0-11.0)
--- OUTSIDE RECORDS SUMMARY | 2025-05-20 06:04 | XMS_ITS | Clinical Summary ---
Author Organization [facility] Address [id number] [address] 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, thoracic Discharge Disposition: Home 04/25/2025 Travel 03/03/2025 12:54 PM EDT - 03/03/2025 11:59 PM EDT Hospital Encounter [facility] - Mammography/DEXA Imaging [address] [place] [address] Visit for screening mammogram Discharge Disposition: Home [...] Description 05/23/2025 9:15 AM EDT Hospital Encounter [facility] - MRI Imaging [address] [place] [address] 05/23/2025 9:45 AM EDT Appointment [facility] - MRI Imaging [address] [place] [address] Health Maintenance Due Date Last Done Comments Tobacco Counseling 1955 Depression Screening 1966 Tobacco Screening 1966 DTaP,Tdap and Td Vaccines (1 - Tdap) 1973 Zoster (Shingles) Vaccine (1 of 2) 2004 Fall Risk Screening 2019 Adult BMI Screening 11/07/2024 11/08/2023 Influenza Vaccine 04/28/2025 06/15/2022, , 06/11/2021, Additional history exists COVID-19 Vaccine Completed 01/28/2025, 01/2024, 01/05/2024, Additional history exists Medical Devices Implanted Type Area Diamond Finishing Supervisor Device Identifier Shelf Expiration Date Model / [...] 03/03/2025 2:35 PM EDT JOSUÉ SANTILLAN 1955 [id number] EXAM: MAMM SCREENING BILATERAL W CAD, 03/03/2025 [...] MAMM 1 YR FDA Accredited Performing Facility: [facility] - Mammography/DEXA Imaging [address] [facility] [id number] Procedure Note Dany Burt MD - 03/03/2025 JOSUÉ SANTILLAN 1955 [id number] EXAM: MAMM SCREENING BILATERAL W CAD, 03/03/2025 [...] MAMM 1 YR FDA Accredited Performing Facility: [facility] - Mammography/DEXA Imaging [address] [facility] [id number] William Conde Jr., DO IMG MAMMOGRAPHY ORDERAB LES Final Result from Last 3 Months Insurance [employer] Care Teams Electronics Maintenance Technician Relationship Specialty Start Date End Date William Conde Jr., DO [address] [place] [id number] PCP - General Internal Medicine 01/17/17
--- OUTSIDE RECORDS SUMMARY | 2025-05-20 06:05 | XMS_ITS | Patient Health Record ---
Author Organization [facility] [place] Address [address] [place] [address] Care Team Providers Care Car Ferrier Name Role Phone William Conde DO Primary Care Provider Unavail able Robert Shrestha Unavailable [phone] Allergies Allergen (clinical drug ingredient) Drug/Non Drug Allergy documented on EMR Reaction Allergy Type Onset Date Status Cat dander cats (uncoded) Unknown Allergy Acti ve Codeine Sulfate *ANALGESICS - OPIOID* (uncoded) Unknown Allergy Active [place]ore corn (uncoded) Unknown Allergy Activ e maple [...] W/U Status Risk Notes Problem Chronic cystitis (48451796) Other chronic cystitis without hematuria (N30.20) Active confirmed Problem Atrophic vaginitis (72570142) Atrophic vaginitis (N95.2) Active confirmed Plan Of Treatment No Information Insurance Providers Payer Name Payer Address Payer Phone Subscriber Number Group Number Insured Name Patient Relationship to Insured Coverage Start Date Coverage End Date [place] [address] [id number] Sneha James Self - patient is the insured 9 MMO MEDICARE SUPPLEMEN T [address] [place] [address] [id number] Sneha James Self - patient is the insured Medical (General) History Medical History History ICD Code Allergic Rhinitis Frequent sinus infections Hypertension Pneumonia history seasonal asthma Hx of TIA high cholesterol arthritis Covid May 2022 Fibromyalgia Other chronic cystitis without hematuria N30.20 Atrophic vaginitis N95.2 Back problems Surgical History Surgery Date(Month/Year) Bilateral carpal tunnel releases Cervical spine fusion Cholecystectomy Hysterectomy Tonsils and adenoids Tubal Ligation cholecystectomy
--- OUTSIDE RECORDS SUMMARY | 2025-05-20 06:05 | XMS_ITS | Clinical Summary ---
Author Organization [facility] Address [address] [place] [address] Phone Care Team Providers Care Aquaculture Farmer Name Role Phone RosauraWilliam jimenez Radhames LANDRY Primary Care Provider [phone] Allergies Active Allergy Reactions Criticality Noted Date Comments Carvedilol Itching Medium 05/03/2023 Doxycycline Itching Medium 05/03/2023 Penicillins Anaphylaxis High 05/03/2023 Prednisone Unknown High 05/03/2023 Medications albuterol 90 mcg/actuation inhaler Inhale if needed. Active baclofen (Lioresal) 10 mg tablet Take by mouth if needed. Active denosumab (Prolia) 60 mg/mL syringe Inject under the skin. inject every 6 months Active HYDROcodone-acetami nophen ([place]) 5-325 mg tablet TAKE 1 TABLET EVERY [...] by mouth once daily. Active fish oil (Russell-3) 60-90-500 mg capsuleIndications: Essential hypertriglyceridemi a,Mixed hyperlipidemia [...] Description 05/29/2025 10:45 AM EDT Office Visit [address] [place] [address] Shannon Almeida MD [address] [facility] [address] [place] [address] Health Maintenance Due Date Last Done Comments [...] EDT) Creatinine 0.92 0.50 - 1.05 mg/dL [facility] GLOMERULAR FILTRATION RATE-NON >60 >60 mL/min/1.7 3m2 [facility] GLOMERULAR FILTRATION RATE- >60 >60 mL/min/1.7 3m2 [facility] Comment: CALCULATIONS OF ESTIMATED GFR ARE PERFORMED USING THE MDRD STUDY EQUATION FOR THE IDMS-TRACEABLE CREATININE METHODS. CLIN CHEM 2007;53:766-72 02/17/2020 12:0 2 PM EDT 02/17/2020 5:41 PM EDT Hiram Leyva MD LAB BLOOD ORDERABLES Final Result [facility] * (ABNORMAL) Electrolyte Panel (02/17/2020 12:02 PM EDT) Sodium 131(L) 136 - 145 mmol/L [facility] Potassium 3.9 3.5 - 5.3 mmol/L [facility] Chloride 93(L) 98 - 107 mmol/L [facility] Bicarbonate 30 21 - 32 mmol/L [facility] Anion Gap 12 10 - 20 mmol/L [facility] 02/17/2020 12:0 2 PM EDT 02/17/2020 5:41 PM EDT Hiram Leyva MD LAB BLOOD ORDERABLES Final Result [facility] from Last 3 Months or Most Recently Relevant to Health Maintenance Insurance MEDICARE PART A AND B [employer] [place] MEDICARE SUPPLEMENT MEDICARE PART A AND B [employer] [place] MEDICARE SUPPLEMENT Care Teams Aquaculture Farmer Relationship Specialty Start Date End Date William Conde DO [address] [place] [id number] PCP - General Internal Medicine 08/02/24
--- OUTSIDE RECORDS SUMMARY | 2025-05-20 06:05 | XMS_ITS | Encounter Summary ---
Author Organization [facility] Address [address] [place] [address] Phone Care Team Providers Care Welder Machine Operator Name Role Phone William Conde DO Primary Care Provider + [phone] Encounter Details Date Type Department Care Team (Late Contact Info) Description 08/07/2024 Scanned Document [facility] [address] [place] [id number] Scanning, Generic Provider Social History Tobacco Use [...] Description 05/29/2025 10:45 AM EDT Office Visit [facility] [address] [facility] [address] [place] [address] Shannon Almeida MD [address] [facility] [address] [place] [address] documented as of this encounter [...] documented as of this encounter Care Teams Welder Machine Operator Relationship Specialty Start Date End Date William Conde DO [address] [place] [address] PCP - General Internal Medicine 08/02/24 documented as of this encounter
--- OUTSIDE RECORDS SUMMARY | 2025-05-20 06:05 | XMS_ITS | Encounter Summary ---
Author Organization [facility] Address [address] [place] [address] Phone Care Team Providers Care Automobile Damage Appraiser Name Role Phone William Conde DO Primary Care Provider + [phone] Encounter Details Date Type Department Care Team (Late st Contact Info) Description 11/07/2024 Scanned Document [facility] [address] [place] [phone] Scanning, Generic Provider Social History Tobacco Use [...] Description 05/29/2025 10:45 AM EDT Office Visit [facility] [address] [facility] [address] [place] [address] Shannon Almeida MD [address] [facility] [address] [place] [address] documented as of this encounter Visit Diagnoses Not on filedocumented in this encounter Additional Health Concerns Assessment Noted Time A fall risk assessment has been complete d for the patient 10/28/2024 1:23 PM EST documented as of this encounter Care Teams Automobile Damage Appraiser Relationship Specialty Start Date End Date William Conde DO [address] [place] [address] PCP - General Internal Medicine 08/02/24 documented as of this encounter
--- OUTSIDE RECORDS SUMMARY | 2025-05-20 06:05 | XMS_ITS | Encounter Summary ---
Author Organization [facility] Address [address] [place] [address] Phone Care Team Providers Care Bail Bonding Agent Name Role Phone William Conde DO Primary Care Provider + [phone] William Conde DO Primary Care Provider + [phone] Encounter Details Date Type Department Care Team (Late st Contact Info) Description 06/11/2021 Orders Only [facility] [address] [place] [address] Conversion, Onbase Social History Tobacco Use Types [...] Description 05/29/2025 10:45 AM EDT Office Visit [facility] [address] [facility] [address] [place] [address] Shannon Almeida MD [address] [facility] [address] [place] [address] Scheduled Orders Name Type Priority Associated Diagnoses Orde r Schedule OUTSIDE LAB SCAN Lab Ordered: 06/11/2021 documented as of this encounter Visit Diagnoses Not on filedocumented in this encounter Care Teams Bail Bonding Agent Relationship Specialty Start Date End Date William Conde DO PCP - General 02/17/20 08/01/24 William Conde DO [address] [place] [address] PCP - General Internal Medicine 08/02/24 documented as of this encounter
[2025-05-20 06:19] LABS: Alanine Aminotransferase 21 U/L (14-59); Albumin Globulin Ratio 1.3; Albumin Level 4.6 g/dL (3.4-5.0); Alkaline Phosphatase 43 U/L (46-116); Anion Gap 14.9; Aspartate Amino Transferase 26 U/L (15-37); Blood Urea Nitrogen 16.0 mg/dL (7.0-18.0); Calcium 10.2 mg/dL (8.5-10.1); Carbon Dioxide 28.3 mmol/L (21.0-32.0); Chloride 87 mmol/L (98-107); Estimated GFR (African America >60 (>=60 mL/min/1.73m^2); Estimated GFR (Non-African Ame 57 (>=60 mL/min/1.73m^2); Globulin 3.5 g/dL; Glucose 135 mg/dL (74-106); Magnesium 1.5 mg/dL (1.8-2.4); Potassium 3.2 mmol/L (3.5-5.1); Sodium 127 mmol/L (136-145); Total Protein 8.1 g/dL (6.4-8.2)
--- NOTE | 2025-05-20 08:00 | ECG_ITS ---
[facility] Test Date: 2025-05-20 Pat Name: JOSUÉ SANTILLAN Department: Room: 2201 Gender: Female Borematic Operator: : 1955 Requested By: [id number] Order Number: [id number] Reading MD: KP BANSAL Measurements Intervals [place] Rate: 79 P: 65 FL: 164 QRS: 55 QRSD: 84 T: 47 QT: 408 QTc: 468 Interpretive Statements SINUS RHYTHM POSSIBLE LEFT ATRIAL ENLARGEMENT [-0.1mV P WAVE IN V1/V2] WARNING: DATA QUALITY MAY AFFECT INTERPRETATION Compared to ECG 05/19/2025 16:54:10 No significant changes Electronically Signed On 05-20-2025 12:27:13 EDT by KP BANSAL
[2025-05-20] MEDS: ATORVASTATIN CALCIUM 20 MG TABLET PO (08:54)
[2025-05-20] MEDS: OXYCODONE HCL/ACETAMINOPHEN 5MG/325MG 1 TAB PO ×3 (08:55→21:17)
[2025-05-20] MEDS: LOSARTAN POTASSIUM 50 MG TABLET 100 MG PO (08:55)
[2025-05-20] MEDS: POTASSIUM CHLORIDE 10 MEQ ER TABLET 40 MEQ PO (08:55)
[2025-05-20] MEDS: MAGNESIUM SULFATE IN WATER 2 GM/50 ML PREMIX IV (08:57)
[2025-05-20] MEDS: MONTELUKAST SODIUM 10 MG TABLET PO (08:57)
--- NOTE | 2025-05-20 09:00 | CM.NOTE ---
Rounds made with Dr. Gunter, discussed with pt plan of care and reason for admission. Clarified status, inpatient status. No discharge today.
--- NOTE | 2025-05-20 10:16 | SWNOTE1 ---
SW met with pt to discuss dc needs. Pt lives at home alone. Pt has friends and family who she can call if she does need anything. Pt voiced she is independent and does not have any services coming in at this time. Pt does not have any anticipated discharge needs at this time. SW to follow as needed.
--- NOTE | 2025-05-20 10:17 | SWNOTE1 ---
Important Message from Medicare reviewed and discussed with patient. Pt. verbalized understanding and signed the form. Original given to patient and copy placed in patient?s chart.
--- NOTE | 2025-05-20 11:37 | PM.HP ---
HPI H&P: HPI History of Present Illness Chief complaint: CHF, HTN Narrative: Mrs. James is a 70-year-old female who came in with worsening headache and shortness of breath. No chest pain. She was found to have hypertensive urgency. Systolic blood pressure is 210/100. No chest pain. No cough or congestion. No fever or chills. No slurred speech. No focal weakness or numbness. No prior history of heart disease. Patient does have hypertension and she takes multiple medications for it. Patient is feeling better since yesterday. Opioid HPI Opioid Management Most Recent Pain and Opioid Data: Last Pain Scale 5 Today, 10:00 Last Pain Assessment Today, 02:00 Last MAR Pain Assessment 05/19/25, 17:26 Last ORT Total Score 1 Today, 01:37 Last ORT Risk Category Low Risk Today, 01:37 Review of Systems ROS Status of ROS 10 or more systems reviewed and unremarkable except as noted in history and below PFS PFS Medical History (Updated 05/20/25 @ 11:40 by Radha Gunter MD) Asthma ?J45.909 - Unspecified asthma, uncomplicated (ICD-10) Hx of deep venous thrombosis ?Z86.718 - Personal history of other venous thrombosis and embolism (ICD-10) History of TIA (transient ischemic attack) ?Z86.73 - Personal history of transient ischemic attack (TIA), and cerebral infarction without residual deficits (ICD-10) Surgical History (Updated 05/20/25 @ 01:34 by Anju Hadley) History of cholecystectomy ?Z90.49 - Acquired absence of other specified parts of digestive tract (ICD-10) H/O hysterectomy with oophorectomy History of appendectomy ?Z90.49 - Acquired absence of other specified parts of digestive tract (ICD-10) Family History (Updated 05/20/25 @ 01:34 by Anju Hadley) Other Family history of CHF (congestive heart failure) Family history of cancer Family history of hypertension Social History (Updated 05/20/25 @ 01:37 by Anju Hadley) Within the past year, how often did you have a drink containing alcohol: monthly or less Smoking status: Current every day smoker Non-prescribed substance use: denies use Previous occupational history: retired Highest level of school completed/degree received: Bachelor's degree In a typical week, how many times do you talk on the telephone with family, friends, or neighbors: 3 or more times per week How often do you get together with friends or relatives: 3 or more times per week Little interest or pleasure in doing things: not at all Feeling down, depressed, or hopeless: not at all Feel stressed/tense/nervous/anxious/difficulty sleeping: not at all Do you think of yourself as: straight/heterosexual Gender Identity: female Meds Home Medications and Allergies Home Medications ?Medication ?Instructions ?Recorded ?Confirmed ?Type atenolol 50 mg tablet 50 mg PO Q24H 05/20/25 05/20/25 History baclofen 10 mg tablet 10 mg PO .Q12 05/20/25 05/20/25 History fenofibrate nanocrystallized 145 145 mg PO DAILY 05/20/25 05/20/25 History mg tablet irbesartan 300 mg tablet 300 mg PO DAILY 05/20/25 05/20/25 History montelukast 10 mg tablet 10 mg PO .QD 05/20/25 05/20/25 History oxycodone-acetaminophen 10 mg-325 1 tab PO Q6H 05/20/25 05/20/25 History mg tablet rosuvastatin 5 mg tablet 5 mg PO DAILY 05/20/25 05/20/25 History trazodone 100 mg tablet 100 mg PO DAILY 05/20/25 05/20/25 History triamterene 37.5 1 tab PO DAILY 05/20/25 05/20/25 History mg-hydrochlorothiazide 25 mg tablet Allergies Allergy/AdvReac Type Severity Reaction Status Date / Time carvedilol (From Coreg) Allergy Severe Swelling Verified 05/19/25 17:03 of Lip/Tongue/Throat doxycycline Allergy Severe Swelling Verified 05/19/25 17:02 of Lip/Tongue/Throat gabapentin Allergy Severe Swelling Verified 05/19/25 17:03 of Lip/Tongue/Throat Penicillins Allergy Severe Swelling Verified 05/19/25 17:03 of Lip/Tongue/Throat Exam Narrative Exam Narrative: [pt is awake and alert. oriented to place, time and person HEENT: [place] conjunctiva and NL buccal mucosa Neck: Supple, no tenderness Endocrine: No Thyromegaly. Vascular: No JVD or carotid bruit. Lymphatic: No cervical lymphadenopathy. Chest: Fine crackles Heart RRR, no extra sound or murmur. Abd: Soft, no tenderness, no rebound and no rigidity. Increase abd girth therefore clinically I could not exclude the possibility of intra abd mass or organomegaly. LE: No cyanosis or clubbing, no varices. Trace pitting edema Neuro: A A O. Nl speech, comprehension and attention. Nl and symetrical motor and tone examination through out. []] Constitutional Vital Signs, click to edit/add: Last Vital Signs Temp 97.8 F 05/20/25 03:13 Pulse 84 05/20/25 09:52 Resp 16 05/20/25 03:13 BP 178/99 H 05/20/25 10:04 Pulse Ox 97 05/20/25 03:13 O2 Del Method Room Air 05/20/25 03:13 Results Labs Labs: Short CBC 05/19/25 05/20/25 Range/Units 16:50 05:24 WBC 12.7 H 18.7 H (4.0-11.0) 10^3/uL Hgb 15.6 15.5 (12.0-16.0) g/dL Hct 44.1 43.9 (36.0-48.0) % Plt Count 276 279 (150-450) 10^3/uL BMP 05/19/25 05/19/25 05/20/25 16:50 18:50 05:24 Sodium 127 L 129 L 127 L Potassium 3.1 L 2.8 L* 3.2 L Chloride 89 L 90 L 87 L Carbon Dioxide 30.7 30.6 28.3 BUN 17.0 17.0 16.0 Creatinine 0.93 0.94 0.96 Glucose 111 H 117 H 135 H Calcium 9.8 9.8 10.2 H Liver Function 05/19/25 05/20/25 Range/Units 16:50 05:24 Total Bilirubin 1.0 0.9 (0.2-1.0) mg/dL AST 24 26 (15-37) U/L ALT 27 21 (14-59) U/L Alkaline Phosphatase 49 43 L (46-116) U/L Albumin 4.8 4.6 (3.4-5.0) g/dL Urine 05/20/25 Range/Units 02:00 Urine Color Lt. yellow (YELLOW) Urine Clarity Clear (CLEAR) Urine pH 6.5 (5.0-9.0) Ur Specific [place] 1.015 (1.005-1.025) Urine Protein 30 A (NEG/TRACE) mg/dL Urine Glucose (UA) Negative (NEGATIVE) mg/dL Assessment and Plan Assessment and Plan (1) Hypertensive urgency: (2) CHF (congestive heart failure): (3) Headache: (4) Hypokalemia: (5) Hypomagnesemia: (6) Hyponatremia: Plan Acute hypertensive urgency. Patient is on atenolol, irbesartan and diuretics at home Her potassium is low which could be related to diuretics use or could be related to hyperaldosterenemia causing hypertensive urgency. I started the patient on Aldactone. I requested to check aldosterone and renin level. If ratio is more than 20 I would suspect hyperaldosteronemia. I also requested metanephrine rule out that you are Pheochromocytoma. Doubt renal artery stenosis. Patient is on high dose of ARB with normal kidney function. Patient had received multiple as needed IV medication overnight Continue to titrate medication to achieve optimal control. Mild degree of acute diastolic heart failure secondary to hypertensive urgency manifested by shortness of breath, elevated BNP, lower extremities edema and mild interstitial pulmonary edema The goal is to control blood pressure and gentle diuresis Hypokalemia which could be secondary to diuretics use at home but could be related to hyper aldosteronenemia causing low potassium and hypertensive urgency Requested aldosterone and renin level Start patient on Aldactone. Hyponatremia which could be related to hypervolemic hyponatremia secondary to an element of diastolic heart failure. Continue to monitor after diuretics use. Bacteriuria Urine cultures pending. Start the patient on Levaquin to 50 mg daily. Leukocytosis which could be reactive. Afebrile. No clinical evidence of infection. Continue to monitor. Hypomagnesemia Magnesium supplementation. Check phosphorus level Chronic medical conditions not listed above, incidental findings seen on labs and imaging. These would need to be addressed. Could be addressed when time and condition are appropriate. Could be addressed in the outpatient setting by PCP collaboration with other needed outpatient providers.
[2025-05-20] MEDS: LEVOFLOXACIN 500 MG TABLET 250 MG PO (11:51)
[2025-05-20] MEDS: HYDRALAZINE HCL 20 MG/ML VIAL 10 MG IVP ×3 (11:51→23:41)
[2025-05-20] MEDS: ACETAMINOPHEN 325 MG TABLET 650 MG PO (12:54)
[2025-05-20] MEDS: AMLODIPINE BESYLATE 5 MG TABLET 2.5 MG PO ×2 (14:13→16:43)
[2025-05-20] MEDS: THIAMINE MONONITRATE (VIT B1) 100 MG TABLET 200 MG PO ×2 (14:13→21:17)
[2025-05-20] MEDS: CALCIUM CARBONATE 500 MG (200MG ELEMENTAL) TAB CHEW PO (21:16)
[2025-05-20] MEDS: TRAZODONE HCL 50 MG TABLET 100 MG PO (21:17)
[2025-05-21] VITALS (18 sets, daily range): BP systolic 147–183; BP diastolic 76–97; PULSE 67–98; TEMP 36.6–36.8; O2SAT 92–96
[2025-05-21] MEDS: OXYCODONE HCL/ACETAMINOPHEN 5MG/325MG 1 TAB PO ×4 (03:57→21:33)
[2025-05-21 06:25] LABS: Hematocrit 41.0 % (36.0-48.0); Hemoglobin 14.9 g/dL (12.0-16.0); Mean Corpuscular HGB Conc 36.3 g/dL (29.9-35.2); Mean Corpuscular Hemoglobin 30.2 pg (26.7-34.0); Mean Corpuscular Volume 83.2 fL (81.0-99.0); Platelet Count 249 10^3/uL (150-450); Red Blood Count 4.93 10^6/uL (4.20-5.40); White Blood Count 12.1 10^3/uL (4.0-11.0)
[2025-05-21 06:35] LABS: Anion Gap 11.5; Blood Urea Nitrogen 18.0 mg/dL (7.0-18.0); Calcium 9.4 mg/dL (8.5-10.1); Carbon Dioxide 28.0 mmol/L (21.0-32.0); Estimated GFR (African America >60 (>=60 mL/min/1.73m^2); Estimated GFR (Non-African Ame 59 (>=60 mL/min/1.73m^2); Glucose 117 mg/dL (74-106); Magnesium 1.5 mg/dL (1.8-2.4); Potassium 3.5 mmol/L (3.5-5.1)
[2025-05-21 06:38] LABS: Chloride 84 mmol/L (98-107); Sodium 120 mmol/L (136-145)
[2025-05-21 07:24] LABS: Thyroid Stimulating Hormone 0.849 uIU/mL (0.358-3.740)
[2025-05-21] MEDS: POTASSIUM CHLORIDE 10 MEQ ER TABLET 40 MEQ PO (08:50)
[2025-05-21] MEDS: ASPIRIN 325 MG TABLET.DR PO (08:50)
[2025-05-21] MEDS: LOSARTAN POTASSIUM 50 MG TABLET 100 MG PO (08:50)
[2025-05-21] MEDS: THIAMINE MONONITRATE (VIT B1) 100 MG TABLET 200 MG PO ×2 (08:50→21:33)
[2025-05-21] MEDS: SPIRONOLACTONE 25 MG TABLET PO ×2 (08:50→21:33)
[2025-05-21] MEDS: AMLODIPINE BESYLATE 5 MG TABLET 10 MG PO (08:50)
[2025-05-21] MEDS: MONTELUKAST SODIUM 10 MG TABLET PO (08:50)
[2025-05-21] MEDS: ATORVASTATIN CALCIUM 20 MG TABLET PO (08:50)
[2025-05-21] MEDS: ATENOLOL 50 MG TABLET PO (08:51)
[2025-05-21] MEDS: LEVOFLOXACIN 500 MG TABLET 250 MG PO (08:51)
[2025-05-21] MEDS: SODIUM CHLORIDE 3 % 500 ML 40 ML IV (08:51)
[2025-05-21] MEDS: MAGNESIUM SULFATE IN WATER 2 GM/50 ML PREMIX IV (08:52)
[2025-05-21] MEDS: ENOXAPARIN SODIUM 40 MG/0.4 ML SYRINGE SUBQ (08:52)
[2025-05-21] MEDS: PROMETHAZINE HCL 25 MG TABLET PO ×3 (08:57→21:33)
[2025-05-21 09:19] LABS: Glucose Urine UA NEGATIVE (NEGATIVE)
--- NOTE | 2025-05-21 09:27 | CM.NOTE ---
Rounded with . A new order was placed for Phenergan 25 mg PO TID due to nausea. He also recommended that she limit fluids due to sodium level.
[2025-05-21 09:30] LABS: Cast Seen? NONE SEEN #/LPF (NONE SEEN); Crystals Seen? None Seen #/HPF (None Seen); Urine Culture Indicated YES-FRMC
--- NOTE | 2025-05-21 11:21 | P.PN_ITS ---
Progress Note: Subjective Subjective Interval history: Patient is feeling better. No shortness of breath. She reports having ongoing drives. No chest pain palpitation Exam Narrative Exam Narrative: [pt is awake and alert. oriented to place, time and person HEENT: [place] conjunctiva and NL buccal mucosa Neck: Supple, no tenderness Endocrine: No Thyromegaly. Vascular: No JVD or carotid bruit. Lymphatic: No cervical lymphadenopathy. Chest: Fine crackles had resolved Heart RRR, no extra sound or murmur. Abd: Soft, no tenderness, no rebound and no rigidity. Increase abd girth therefore clinically I could not exclude the possibility of intra abd mass or organomegaly. LE: No cyanosis or clubbing, no varices. Trace pitting edema had resolved Neuro: A A O. Nl speech, comprehension and attention. Nl and symetrical motor and tone examination through out. []] Constitutional Vital Signs, click to edit/add: Last Vital Signs Temp 98.1 F 05/21/25 08:55 Pulse 67 05/21/25 10:00 Resp 18 05/21/25 08:55 BP 157/76 H 05/21/25 10:28 Pulse Ox 92 L 05/21/25 08:55 O2 Del Method Room Air 05/21/25 08:55 Progress Note: Objective Labs Labs: Short CBC 05/21/25 Range/Units 06:15 WBC 12.1 H (4.0-11.0) 10^3/uL Hgb 14.9 (12.0-16.0) g/dL Hct 41.0 (36.0-48.0) % Plt Count 249 (150-450) 10^3/uL BMP 05/21/25 06:15 Sodium 120 L* Potassium 3.5 Chloride 84 L* Carbon Dioxide 28.0 BUN 18.0 Creatinine 0.93 Glucose 117 H Calcium 9.4 Urine 05/21/25 Range/Units 09:00 Urine Color Lt. yellow (YELLOW) Urine Clarity Cloudy A (CLEAR) Urine pH 6.5 (5.0-9.0) Ur Specific [place] 1.015 (1.005-1.025) Urine Protein Trace (NEG/TRACE) mg/dL Urine Glucose (UA) Negative (NEGATIVE) mg/dL Progress Note: A&P Assessment and Plan (1) Hypertensive urgency: (2) CHF (congestive heart failure): (3) Headache: (4) Hypokalemia: (5) Hypomagnesemia: (6) Hyponatremia: Plan Acute hypertensive urgency. Patient is on atenolol, irbesartan and diuretics at home Her potassium is low which could be related to diuretics use or could be related to hyperaldosterenemia causing hypertensive urgency. I started the patient on Aldactone. I requested to check aldosterone and renin level. If ratio is more than 20 I would suspect hyperaldosteronemia. I also requested metanephrine rule out that you are Pheochromocytoma. Still pending Doubt renal artery stenosis. Patient is on high dose of ARB with normal kidney function. Patient had received multiple as needed IV medication overnight Continue to titrate medication to achieve optimal control. I uptitrated amlodipine dose. Continue beta-kendall and ARB. Continue spironolactone Mild degree of acute diastolic heart failure secondary to hypertensive urgency manifested by shortness of breath, elevated BNP, lower extremities edema and mild interstitial pulmonary edema The goal is to control blood pressure and gentle diuresis Hypokalemia which could be secondary to diuretics use at home but could be related to hyper aldosteronenemia causing low potassium and hypertensive urgency Requested aldosterone and renin level, pending Start patient on Aldactone. Hyponatremia which could be related to hypervolemic hyponatremia secondary to an element of diastolic heart failure. Also patient is having dry heaves and nausea sensation which is likely the trigger for SIADH and worsening hyponatremia Continue to monitor after diuretics use. Water restriction per 3% sodium at 40 mL an hour BMP at 1420 100 Requested serum and urine osmolality. Requested TSH and cortisol level rule out hypothyroidism and adrenal insufficiency Bacteriuria Urine cultures pending. Start the patient on Levaquin to 50 mg daily. Leukocytosis which could be reactive. Afebrile. No clinical evidence of infection. Continue to monitor. Hypomagnesemia and hypophosphatemia Magnesium and phosphate supplement Chronic medical conditions not listed above, incidental findings seen on labs and imaging. These would need to be addressed. Could be addressed when time and condition are appropriate. Could be addressed in the outpatient setting by PCP collaboration with other needed outpatient providers.
--- NOTE | 2025-05-21 13:00 | PC.NURSE ---
cloudy sylvain urine
[2025-05-21] MEDS: HYDRALAZINE HCL 20 MG/ML VIAL 10 MG IVP ×2 (13:25→20:13)
[2025-05-21 14:12] LABS: Anion Gap 10.3; Blood Urea Nitrogen 20.0 mg/dL (7.0-18.0); Calcium 9.2 mg/dL (8.5-10.1); Carbon Dioxide 26.8 mmol/L (21.0-32.0); Chloride 88 mmol/L (98-107); Estimated GFR (African America 59 (>=60 mL/min/1.73m^2); Estimated GFR (Non-African Ame 48 (>=60 mL/min/1.73m^2); Glucose 116 mg/dL (74-106); Potassium 4.1 mmol/L (3.5-5.1)
[2025-05-21 14:15] LABS: Sodium 121 mmol/L (136-145)
--- NOTE | 2025-05-21 14:33 | PC.NURSE ---
Dr. Gunter notified of patients BP
--- NOTE | 2025-05-21 16:57 | DIETREC ---
Recommend 237 mL Ensure Original BID.
[2025-05-21] MEDS: FUROSEMIDE 40 MG/4 ML VIAL IVP (18:29)
[2025-05-21] MEDS: TRAZODONE HCL 50 MG TABLET 100 MG PO (21:33)
[2025-05-21 21:43] LABS: Anion Gap 12.4; Blood Urea Nitrogen 19.0 mg/dL (7.0-18.0); Calcium 9.3 mg/dL (8.5-10.1); Carbon Dioxide 26.9 mmol/L (21.0-32.0); Chloride 93 mmol/L (98-107); Estimated GFR (African America 59 (>=60 mL/min/1.73m^2); Estimated GFR (Non-African Ame 49 (>=60 mL/min/1.73m^2); Glucose 136 mg/dL (74-106); Potassium 3.3 mmol/L (3.5-5.1); Sodium 129 mmol/L (136-145)
[2025-05-21] MEDS: SODIUM CHLORIDE 1,000 MG TABLET 2000 MG PO (23:26)
[2025-05-21] MEDS: POTASSIUM CHLORIDE 10 MEQ ER TABLET 20 MEQ PO (23:26)
[2025-05-22] VITALS (21 sets, daily range): BP systolic 140–184; BP diastolic 70–90; PULSE 68–91; TEMP 36.4–36.9; O2SAT 94–97
[2025-05-22] MEDS: OXYCODONE HCL/ACETAMINOPHEN 5MG/325MG 1 TAB PO ×4 (03:05→20:15)
[2025-05-22] MEDS: SODIUM CHLORIDE 1,000 MG TABLET 2000 MG PO ×3 (05:23→21:49)
[2025-05-22] MEDS: PROMETHAZINE HCL 25 MG TABLET PO ×2 (05:23→20:15)
[2025-05-22 06:03] LABS: Anion Gap 12.2; Blood Urea Nitrogen 20.0 mg/dL (7.0-18.0); Calcium 9.4 mg/dL (8.5-10.1); Carbon Dioxide 26.0 mmol/L (21.0-32.0); Chloride 97 mmol/L (98-107); Estimated GFR (African America >60 (>=60 mL/min/1.73m^2); Estimated GFR (Non-African Ame 52 (>=60 mL/min/1.73m^2); Glucose 133 mg/dL (74-106); Potassium 3.2 mmol/L (3.5-5.1); Sodium 132 mmol/L (136-145)
[2025-05-22 06:06] LABS: Magnesium 1.9 mg/dL (1.8-2.4)
[2025-05-22] MEDS: LEVOFLOXACIN 500 MG TABLET 250 MG PO (08:50)
--- NOTE | 2025-05-22 09:20 | CM.NOTE ---
Rounds made with Dr. Gunter, no discharge today. Plan of care discussed with pt and am labs.
--- NOTE | 2025-05-22 09:51 | P.PN_ITS ---
Progress Note: Subjective Subjective Interval history: Patient is feeling better. No shortness of breath. No chest pain palpitation Resolution of dry heaves and nausea sensation. Exam Narrative Exam Narrative: [pt is awake and alert. oriented to place, time and person HEENT: [place] conjunctiva and NL buccal mucosa Neck: Supple, no tenderness Endocrine: No Thyromegaly. Vascular: No JVD or carotid bruit. Lymphatic: No cervical lymphadenopathy. Chest: Fine crackles had resolved Heart RRR, no extra sound or murmur. Abd: Soft, no tenderness, no rebound and no rigidity. Increase abd girth therefore clinically I could not exclude the possibility of intra abd mass or organomegaly. LE: No cyanosis or clubbing, no varices. Trace pitting edema had resolved Neuro: A A O. Nl speech, comprehension and attention. Nl and symetrical motor and tone examination through out. []] Constitutional Vital Signs, click to edit/add: Last Vital Signs Temp 97.8 F 05/22/25 08:03 Pulse 79 05/22/25 08:03 Resp 16 05/22/25 08:03 BP 184/80 H 05/22/25 08:03 Pulse Ox 95 05/22/25 08:03 O2 Del Method Room Air 05/22/25 08:03 Progress Note: Objective Labs Labs: BMP 05/21/25 05/21/25 05/22/25 13:50 21:02 05:21 Sodium 121 L* 129 L 132 L Potassium 4.1 3.3 L 3.2 L Chloride 88 L 93 L 97 L Carbon Dioxide 26.8 26.9 26.0 BUN 20.0 H 19.0 H 20.0 H Creatinine 1.11 H 1.10 H 1.04 H Glucose 116 H 136 H 133 H Calcium 9.2 9.3 9.4 Progress Note: A&P Assessment and Plan (1) Hypertensive urgency: (2) CHF (congestive heart failure): (3) Headache: (4) Hypokalemia: (5) Hypomagnesemia: (6) Hyponatremia: Plan Acute hypertensive urgency. Patient is on atenolol, irbesartan and diuretics at home Her potassium is low which could be related to diuretics use or could be related to hyperaldosterenemia causing hypertensive urgency. I started the patient on Aldactone. I requested to check aldosterone and renin level. If ratio is more than 20 I would suspect hyperaldosteronemia. Lab is still pending I also requested metanephrine rule out that you are Pheochromocytoma. Still pending Doubt renal artery stenosis. Patient is on high dose of ARB with normal kidney function. Patient is already on calcium kendall, beta-kendall, ARB, MRA. I added Girish today Echocardiogram does not show any valvular disease.could be contributing to her hypertensive urgency such as aortic stenosis. Mild degree of acute diastolic heart failure secondary to hypertensive urgency manifested by shortness of breath, elevated BNP, lower extremities edema and mild interstitial pulmonary edema The goal is to control blood pressure and gentle diuresis Repeat chest x-ray Continue diuretics. Hypokalemia which could be secondary to diuretics use at home but could be relat ed to hyper aldosteronenemia causing low potassium and hypertensive urgency Requested aldosterone and renin level, pending Continue spironolactone. Hyponatremia which could be related to hypervolemic hyponatremia secondary to an element of diastolic heart failure. Also patient is having dry heaves and nausea sensation which is likely the trigger for SIADH and worsening h yponatremia Sodium level has been corrected. Bacteriuria Patient has been on Levaquin. Urine cultures positive for mixed organisms. Discontinue Levaquin after today's dose. Leukocytosis which could be reactive. Afebrile. No clinical evidence of infection. Continue to monitor. Hypomagnesemia and hypophosphatemia Magnesium and phosphate supplement Chronic medical conditions not listed above, incidental findings seen on labs and imaging. These would need to be addressed. Could be addressed when time and condition are appropriate. Could be addressed in the outpatient setting by PCP collaboration with other needed outpatient providers.
[2025-05-22] MEDS: POTASSIUM CHLORIDE 10 MEQ ER TABLET 40 MEQ PO (09:58)
[2025-05-22] MEDS: FUROSEMIDE 40 MG/4 ML VIAL IVP (09:59)
[2025-05-22] MEDS: AMLODIPINE BESYLATE 5 MG TABLET 10 MG PO (09:59)
[2025-05-22] MEDS: ENOXAPARIN SODIUM 40 MG/0.4 ML SYRINGE SUBQ (10:00)
[2025-05-22] MEDS: ATORVASTATIN CALCIUM 20 MG TABLET PO (10:00)
[2025-05-22] MEDS: DOXAZOSIN MESYLATE 2 MG TABLET PO (10:00)
[2025-05-22] MEDS: ATENOLOL 50 MG TABLET PO (10:00)
[2025-05-22] MEDS: ASPIRIN 325 MG TABLET.DR PO (10:00)
[2025-05-22] MEDS: LOSARTAN POTASSIUM 50 MG TABLET 100 MG PO (10:03)
[2025-05-22] MEDS: MONTELUKAST SODIUM 10 MG TABLET PO (10:03)
[2025-05-22] MEDS: SPIRONOLACTONE 25 MG TABLET PO ×2 (10:04→20:14)
[2025-05-22] MEDS: THIAMINE MONONITRATE (VIT B1) 100 MG TABLET 200 MG PO ×2 (10:05→20:15)
--- NOTE | 2025-05-22 11:20 | XR_ITS ---
The [address] [address] Patient Name: JOSUÉ SANTILLAN MRN: [id number] date: 1955 Sex: F Assigned Patient Location: [place] Current Patient Location: [place] Accession/Order Number: [id number] Exam Date: 05/22/2025 11:57 Report Date: 05/22/2025 12:31 At the request of: SAYRA ROBERTSON MD Procedure: XR chest 1V Single view chest: CLINICAL HISTORY: Elevated blood pressure. ear pressure. COMPARISON: Chest 05/19/2025 FINDINGS: The heart is normal in size. The lungs are clear. No free air. XR/XR chest 1V IMPRESSION: NO ACUTE PROCESS. Impression dictated by: Martin Shaikh Jr., D.O. 05/22/2025 12:31 PM Dictation Location: [place] [address] Electronically authenticated by: [id number] Date: 05/22/2025 12:31
[2025-05-22] MEDS: DIPHENOXYLATE HCL 2.5 MG/ATROPINE 0.025 MG TABLET 2 TAB PO (12:13)
[2025-05-22] MEDS: CETIRIZINE HCL 10 MG TABLET PO (12:13)
[2025-05-22] MEDS: HYDRALAZINE HCL 20 MG/ML VIAL 10 MG IVP (20:19)
[2025-05-22] MEDS: FUROSEMIDE 40 MG TABLET PO (21:48)
[2025-05-22] MEDS: BACLOFEN 10 MG TABLET PO (21:49)
[2025-05-22] MEDS: TRAZODONE HCL 50 MG TABLET 100 MG PO (21:49)
[2025-05-23] VITALS (8 sets, daily range): BP systolic 171–173; BP diastolic 81–82; PULSE 62–97; TEMP 36.7–36.8; O2SAT 94–96
[2025-05-23] MEDS: HYDRALAZINE HCL 20 MG/ML VIAL 10 MG IVP (03:51)
[2025-05-23] MEDS: OXYCODONE HCL/ACETAMINOPHEN 5MG/325MG 1 TAB PO ×2 (03:54→08:41)
[2025-05-23] MEDS: SODIUM CHLORIDE 1,000 MG TABLET 2000 MG PO (05:01)
[2025-05-23 05:15] LABS: Hematocrit 46.2 % (36.0-48.0); Hemoglobin 15.9 g/dL (12.0-16.0); Mean Corpuscular HGB Conc 34.4 g/dL (29.9-35.2); Mean Corpuscular Hemoglobin 29.7 pg (26.7-34.0); Mean Corpuscular Volume 86.4 fL (81.0-99.0); Platelet Count 291 10^3/uL (150-450); Red Blood Count 5.35 10^6/uL (4.20-5.40); White Blood Count 12.4 10^3/uL (4.0-11.0)
[2025-05-23 05:29] LABS: Anion Gap 10.9; Blood Urea Nitrogen 20.0 mg/dL (7.0-18.0); Calcium 9.3 mg/dL (8.5-10.1); Carbon Dioxide 24.5 mmol/L (21.0-32.0); Chloride 98 mmol/L (98-107); Estimated GFR (African America 59 (>=60 mL/min/1.73m^2); Estimated GFR (Non-African Ame 49 (>=60 mL/min/1.73m^2); Glucose 99 mg/dL (74-106); Potassium 3.4 mmol/L (3.5-5.1); Sodium 130 mmol/L (136-145)
--- NOTE | 2025-05-23 07:55 | CM.NOTE ---
Rounds made with Dr. Gunter, pt will discharge to home today. Pt has f/u appt scheduled with Dr. Conde on May 29.
[2025-05-23] MEDS: POTASSIUM CHLORIDE 10 MEQ ER TABLET 40 MEQ PO (08:40)
[2025-05-23] MEDS: ASPIRIN 325 MG TABLET.DR PO (08:40)
[2025-05-23] MEDS: ATENOLOL 50 MG TABLET PO (08:41)
[2025-05-23] MEDS: DOXAZOSIN MESYLATE 2 MG TABLET PO (08:41)
[2025-05-23] MEDS: CETIRIZINE HCL 10 MG TABLET PO (08:41)
[2025-05-23] MEDS: LOSARTAN POTASSIUM 50 MG TABLET 100 MG PO (08:41)
[2025-05-23] MEDS: PROMETHAZINE HCL 25 MG TABLET PO (08:41)
[2025-05-23] MEDS: THIAMINE MONONITRATE (VIT B1) 100 MG TABLET 200 MG PO (08:41)
[2025-05-23] MEDS: ATORVASTATIN CALCIUM 20 MG TABLET PO (08:41)
[2025-05-23] MEDS: AMLODIPINE BESYLATE 5 MG TABLET 10 MG PO (08:42)
[2025-05-23] MEDS: SPIRONOLACTONE 25 MG TABLET PO (08:42)
[2025-05-23] MEDS: MONTELUKAST SODIUM 10 MG TABLET PO (08:42)
[2025-05-23] MEDS: ENOXAPARIN SODIUM 40 MG/0.4 ML SYRINGE SUBQ (08:42)
[2025-05-23] MEDS: REMOVE PATCH 1 PATCH TOPICAL (08:43)
[2025-05-23] MEDS: TORSEMIDE 20 MG TABLET PO (08:44)
--- NOTE | 2025-05-23 08:58 | CM.NOTE ---
Urine culture results given to Dr. Aguirre.
--- NOTE | 2025-05-23 10:31 | PM.DS1 ---
DS: Providers Provider Date of admission: 05/20/25 01:25 Primary care physician: LEIGHANN CAICEDO DO DS: Diagnosis Discharge Diagnosis (1) Hypertensive urgency: (2) CHF (congestive heart failure): (3) Headache: (4) Hypokalemia: (5) Hypomagnesemia: (6) Hyponatremia: Plan As listed above, below and others that are not listed DS: Summary Hospital Course Hospital Course: Mrs. James is a 70-year-old female who came in with headache. She was found to have the following: Acute hypertensive urgency. Patient is on atenolol, irbesartan and diuretics at home Her potassium is low which could be related to diuretics use or could be related to hyperaldosterenemia causing hypertensive urgency. I started the patient on Aldactone. I requested to check aldosterone and renin level. If ratio is more than 20 I would suspect hyperaldosteronemia. Lab is still pending I also requested metanephrine rule out that you are Pheochromocytoma. Still pending these test would need to be followed up by you her primary care doctor Doubt renal artery stenosis. Patient is on high dose of ARB with normal kidney function. Patient is already on calcium kendall, beta-kendall, ARB, MRA. I added Cardura today. I changed her diuretics from hydrochlorothiazide to torsemide and spironolactone to prevent further hyponatremia and also to treat the possibility of hyperaldosteronism Echocardiogram does not show any valvular disease.could be contributing to her hypertensive urgency such as aortic stenosis. Mild degree of acute diastolic heart failure secondary to hypertensive urgency manifested by shortness of breath, elevated BNP, lower extremities edema and mild interstitial pulmonary edema The goal is to control blood pressure and gentle diuresis Repeat chest x-ray showed resolution of interstitial edema Continue diuretics. Hypokalemia which could be secondary to diuretics use at home but could be related to hyper aldosteronenemia causing low potassium and hypertensive urgency Requested aldosterone and renin level, pending Continue spironolactone. Hyponatremia which could be related to hypervolemic hyponatremia secondary to an element of diastolic heart failure. Also patient is having dry heaves and nausea sensation which is likely the trigger for SIADH and worsening hyponatremia TSH is normal and the cortisol level is 19 making the possibility of hypothyroidism and/or adrenal insufficiency as a cause of her hyponatremia unlikely Serum and urine osmolalities are still pending. Sodium level has been corrected. Patient will be instructed to continue water and fluid restriction. Repeat BMP at Dr. Caicedo office on 05/29 Bacteriuria, Aerococcus UTI Patient has been on Levaquin. Continue Levaquin for the next 5 days Leukocytosis which could be reactive. Afebrile. No clinical evidence of infection. Continue to monitor. Hypomagnesemia Magnesium supplement Tobacco addiction Counseling and education order provided. Chronic medical conditions not listed above, incidental findings seen on labs and imaging. These would need to be addressed. Could be addressed when time and condition are appropriate. Could be addressed in the outpatient setting by PCP collaboration with other needed outpatient providers. Patient has multiple complex medical issues as listed above and others that are not listed. All appear to be stable. I do not have any clear or strong clinical justification to extend inpatient hospitalization. Patient however will require close and frequent monitoring as well as additional work-up, investigation and therapeutic intervention that could take place from this point on post discharge. That is to prevent relapse, decompensation, rehospitalization and other medical implications.. I instructed patient to ask her primary care doctor to obtain [facility] record entirely to address abnormalities seen on labs and imaging that I have and have not addressed during this hospitalization, follow-up on pending blood work, imaging and pathology is if available and to follow-up on needed medical care in the outpatient setting. Time Spent with Patient Time attestation: Total time spent providing and/or coordinating discharge services: Exam Narrative Exam Narrative: [pt is awake and alert. oriented to place, time and person HEENT: [place] conjunctiva and NL buccal mucosa Neck: Supple, no tenderness Endocrine: No Thyromegaly. Vascular: No JVD or carotid bruit. Lymphatic: No cervical lymphadenopathy. Chest: Fine crackles had resolved Heart RRR, no extra sound or murmur. Abd: Soft, no tenderness, no rebound and no rigidity. Increase abd girth therefore clinically I could not exclude the possibility of intra abd mass or organomegaly. LE: No cyanosis or clubbing, no varices. Trace pitting edema had resolved Neuro: A A O. Nl speech, comprehension and attention. Nl and symetrical motor and tone examination through out. []] Constitutional Vital Signs, click to edit/add: Last Vital Signs Temp 98.2 F 05/23/25 08:00 Pulse 97 H 05/23/25 09:44 Resp 16 05/23/25 08:00 BP 171/81 H 05/23/25 08:00 Pulse Ox 94 L 05/23/25 08:00 O2 Del Method Room Air 05/23/25 08:00 DS: Data Data Completed and Pending Labs on day of discharge: Labs from last 24 hours 05/23/25 05/21/25 05:05 06:15 WBC 12.4 H RBC 5.35 Hgb 15.9 Hct 46.2 MCV 86.4 MCH 29.7 MCHC 34.4 RDW 14.3 Plt Count 291 MPV 9.6 Sodium 130 L Potassium 3.4 L Chloride 98 Carbon Dioxide 24.5 Anion Gap 10.9 BUN 20.0 H Creatinine 1.10 H Est GFR ( Amer) 59 L Est GFR (Non-Af Amer) 49 L BUN/Creatinine Ratio 18.2 Glucose 99 Calcium 9.3 Cortisol AM Sample 19.2 Preliminary micro results at discharge 05/21/25 09:00 Urine Culture - Preliminary Urine,Clean Catch Pending - Specimen sent to [facility] Discharge Plan Discharge Disposition: Home, Self-Care Discharge Medications: New levofloxacin 500 mg Tablet 250 mg PO QD Qty: 5 0RF thiamine mononitrate (vit B1) 100 mg Tablet 100 mg PO DAILY Qty: 30 0RF spironolactone 25 mg Tablet 25 mg PO BID Qty: 60 2RF doxazosin 2 mg Tablet 2 mg PO HS Qty: 30 1RF aspirin 81 mg tablet,delayed release (DR/EC) 81 mg PO DAILY Qty: 120 1RF torsemide 10 mg tablet 10 mg PO DAILY Qty: 30 1RF amlodipine 10 mg tablet 10 mg PO DAILY Qty: 30 1RF Continued montelukast 10 mg tablet 10 mg PO .QD atenolol 50 mg tablet 50 mg PO Q24H irbesartan 300 mg tablet 300 mg PO DAILY fenofibrate nanocrystallized 145 mg tablet 145 mg PO DAILY oxycodone-acetaminophen 10-325 mg tablet 1 tab PO Q6H rosuvastatin 5 mg tablet 5 mg PO DAILY baclofen 10 mg tablet 10 mg PO .Q12 Patient Comments: pt states she has been taking 2x/day Changed trazodone 100 mg tablet 100 mg PO HS Qty: 0 0RF Discontinued triamterene-hydrochlorothiazid 37.5-25 mg tablet 1 tab PO DAILY Activity: resume usual activities as tolerated Diet: advance to your usual diet Print Language: Mongolian Patient Instructions: Heart Healthy Diet (GEN), Hypertensive Crisis (GEN) Activity Restrictions/Additional Instructions: I may not have addressed or treated all of your medical illnesses or the abnormal blood work or imaging studies during this hospitalization. Please ask your primary care provider to obtain [facility] records entirely to follow up on all of the abnormal physical, laboratory, and imaging findings that I have not addressed. Please return back to the emergency room or seek medical attention if your symptoms worsen or return. Your blood pressure medications have been adjusted. You may need to have additional adjustment of your medications to keep your blood pressure under control. Please follow-up with your doctor to do so. Recommend you to have a blood test called BMP at your doctor's office on 05/29. Please continue to not to drink excessive amount of water, coffee, tea, juice, pop. There are pending blood tests (metanephrine, aldosterone and renin ) please ask your primary care doctor to review pending results when you see him on 05/29. Discharging you from [facility] does not mean that your medical care ends here and now. You may still need additional monitoring, work up, investigation, and treatment plan to be handled from this point on by out patient providers including your primary care provider and specialists. For any medication question, please contact your retail pharmacist or your primary care provider. Thank you. Forms: Portal Instructions Follow Up Appointments: 05/29 @ 2pm with Dr. Caicedo [phone]
--- NOTE | 2025-05-23 10:58 | CM.NOTE ---
CM gave patient lab requisition for BMP to be completed prior to seeing Dr. Conde on Monday. CM attempted to call [facility] office, office closed on Monday. Unsure if Dr. Conde able to draw in office, so pt provided with order prior to discharge. Pt verbalizes understanding reason for lab work and appointment scheduled for Dr. Conde.
[2025-05-25 22:15] LABS: Aldosterone LCMS, Serum 5.8 ng/dL (0.0-30.0)
[2025-05-25 23:07] LABS: Renin Activity, Plasma <0.167 ng/mL/hr (0.167-5.380)
--- NOTE | 2025-05-26 14:02 | CM.DCFOLLOWU ---
Person spoke with: Sneha How are you feeling? Good How is your pain? No pain Did you understand your discharge instructions?Yes Do you have any questions about your discharge instructions?No Were you given any prescriptions at discharge?Yes Were you able to get your prescriptions filled?Yes Do you understand how to take your medications as ordered?Yes Do you have any questions about your follow up appointment and do you plan to keep your follow up appointment? Yes I plan on keeping my appt with my PCP and Cardiology Is there anything else that you would like to discuss? No Questions/Comments/Concerns/Other: She would like her daughter to have access to her medical records the patient was advised to download the sarah on her phone and if she would like her daughter to have access to share her username and password with her daughter
== END 2025-05-23 11:05 | disposition home or self-care (01) | DRG 304 ==
LOC: ER 05-20 00:18 → MS 05-20 06:02
PROVIDERS: Internal Medicine; Admitting Provider Internal Medicine; Emergency Provider Emergency Medicine; PCP Internal Medicine; Visit Provider Internal Medicine
DX: I16.0 Hypertensive urgency (principal); I50.31 Acute diastolic (congestive) heart failure; E87.1 Hypo-osmolality and hyponatremia; N39.0 Urinary tract infection, site not specified; I11.0 Hypertensive heart disease with heart failure; F17.210 Nicotine dependence, cigarettes, uncomplicated; R51.9 Headache, unspecified; E87.6 Hypokalemia; E83.42 Hypomagnesemia; D72.829 Elevated white blood cell count, unspecified; J45.909 Unspecified asthma, uncomplicated; Z86.718 Personal history of other venous thrombosis and embolism; Z86.73 Personal history of transient ischemic attack (TIA), and cerebral infarction without residual deficits; Z90.49 Acquired absence of other specified parts of digestive tract; Z90.710 Acquired absence of both cervix and uterus; Z79.899 Other long term (current) drug therapy; E83.39 Other disorders of phosphorus metabolism; B96.89 Other specified bacterial agents as the cause of diseases classified elsewhere
CPT/HCPCS: 36415; 70450; 71045; 80048; 80053; 81001; 82088; 82533; 83735; 83835; 83880; 83930; 83935; 84100; 84244; 84443; 84484; 85025; 85027; 85378; 85610; 87086; 87088; 93005; 93306; 96374; 96375; 96376; 99285; 99406; J0360; J1290; J1650; J1885; J1920; J1938; J2405; J3360; J3475; J7131; Q0169

== ENCOUNTER 2025-05-26 09:18 | Outpatient (OUT) | payer MEDICARE, OTHER, SELFPAY ==
--- OUTSIDE RECORDS SUMMARY | 2025-05-21 20:36 | XMS_ITS | Continuity of Care Document ---
Author Organization [facility] Address [address] [place] [address] Phone Care Team Providers Care Assembly Inspector Helper Name Role Phone Radha Gunter MD Attending Provider Radha Gunter MD Attending Provider Care Teams Visit Care Team Team Status: Inactive Member Role Status Dates Radha Gunter MD Attending Provider Active Sta rt: May 20, 2025 End: May 20, 2025 Patient Care Team Team Status: Inactive Member Role Status Dates Radha Gunter MD Attending Provider Active Sta rt: May 21, 2025 End: May 21, 2025 Chief Complaint and Reason for Visit Chief Complaint Admit Date Unknown May 20, 2025 2:00am Unknown May 21, 2025 9:00am Allergies, Adverse Reactions, Alerts Allergen Type Severity Reaction Last Updated Verified Status Penicillins Allergy Severe Hives January 16, 2025 10:20am Yes Active Social History Smoking Status Status Start Date End Date Date of Observa tion Smokes tobacco daily (finding) December 12, 2024 9:58am Observation Status Observation Response Date of Response Legal Sex Female (finding) Sex Assigned At Female 1955 Family History Relationship Condition Age at Onset Recorded Date/T cathi father History of coronary artery bypass surgery Unknown Heart disease Unknown mother Dementia Unknown brother High blood cholesterol Unknown sister Malignant neoplasm Unknown Hypertension Unknown sister Malignant neoplasm Unknown Diabetes mellitus Unknown Problems Active Problems Medical Problem Onset Date Status Hyperlipidemia Unknown Active PAD (peripheral artery disease) Unknown Active HTN (hypertension) Unknown Active Medications Medication Status Dose Units Route Directions Qty Days St art Date Stop Date End Date Instructions Adherence Clopidogrel 75 mg tablet Active 75 MG PO Daily 90 90 December 26, 2024 12:00a m Unknown Nitrofurant oin Monohyd/M-C ryst 100 mg capsule Active December 24, 2024 12:00a m Unknown Aspirin (Adult Low Dose Aspirin) 81 mg tablet,romelia yed release (DR/EC) Active 81 MG PO Daily December 24, 2024 12:00a m Unknown Duloxetine (Cymbalta) 20 mg capsule,del ayed release(DR/ EC) Active 20 MG PO Daily at bedtime December 12, 2024 12:00a m Unknown Ezetimibe (Zetia) 10 mg tablet Active 5 MG PO Daily December 12, 2024 12:00a m Unknown Hydrocodone -Acetaminop hen 10-325 mg tablet Active 1 TAB PO every 6 to 8 hours as needed for pain (scale score 1-3) December 12, 2024 12:00a m Unknown Denosumab (Prolia) 60 mg/mL syringe Active 60 MG SUBCUT EVERY 6 MONTHS December 12, 2024 12:00a m Unknown Mecobalamin (Vitamin B12) 500 mcg tablet,chew able Active MCG PO Daily December 12, 2024 12:00a m Unknown Cholecalcif donna (Vitamin D3) 50 mcg (2,000 unit) capsule Active 50 MCG PO Daily December 12, 2024 12:00a m Unknown Estradiol 0.01 % (0.1 mg/gram) cream Active 1 APPLIC ATOR VAGINA L Daily December 12, 2024 12:00a m for 14 days Unknown Baclofen 10 mg tablet Discont inued 10 MG PO November 07, 2024 12:00a m December 12, 2024 9:55a m Fenofibrate Nanocrystal lized 145 mg tablet Discont inued MG PO November 07, 2024 12:00a m December 12, 2024 9:55a m Doxazosin 4 mg tablet Discont inued 4 MG PO November 07, 2024 12:00a m December 12, 2024 9:55a m Triamterene -Hydrochlor othiazid 37.5-25 mg tablet Discont inued 1 TAB PO November 07, 2024 12:00a m December 12, 2024 9:55a m Trazodone 100 mg tablet Discont inued 100 MG PO November 07, 2024 12:00a m December 12, 2024 9:55a m Irbesartan 300 mg tablet Discont inued 300 MG PO November 07, 2024 12:00a m December 12, 2024 9:55a m Montelukast 10 mg tablet Discont inued 10 MG PO November 07, 2024 12:00a m December 12, 2024 9:55a m Rosuvastati n 5 mg tablet Discont inued 5 MG PO November 07, 2024 12:00a m December 12, 2024 9:55a m Atenolol 50 mg tablet Discont inued 50 MG PO November 07, 2024 12:00a m December 12, 2024 9:55a m Atenolol 50 mg tablet Active 50 MG PO Daily December 12, 2024 9:49am Unknown Baclofen 10 mg tablet Active 10 MG PO Daily as needed for muscle spasm December 12, 2024 9:50am Unknown Doxazosin 4 mg tablet Active 4 MG PO Daily at bedtime December 12, 2024 9:50am Unknown Fenofibrate Nanocrystal lized 145 mg tablet Active MG PO Daily December 12, 2024 9:50am Unknown Irbesartan 300 mg tablet Active 300 MG PO Daily December 12, 2024 9:52am Unknown Montelukast 10 mg tablet Active 10 MG PO Daily at bedtime as needed for allergy symptoms December 12, 2024 9:52am Unknown Rosuvastati n 5 mg tablet Active 5 MG PO Daily December 12, 2024 9:52am Unknown Trazodone 100 mg tablet Active 100 MG PO Daily at bedtime December 12, 2024 9:54am Unknown Triamterene -Hydrochlor othiazid 37.5-25 mg tablet Active 1 TAB PO Daily December 12, 2024 9:54am Unknown Medical Equipment Device Date Implanted Device Details Multiple peripheral artery stent, bare-metal December 24, 2024 [place]: [id number] Issuing Agency: [facility] Device Id: [id number] Expiration Date: 2027-07-17 Serial Number: [id number] Procedures Procedure Date Performed Status Urine Culture May 20, 2025 active Urine Culture May 21, 2025 active Advance Directives Advance Directive Response Recorded Date/ Time Advance Directives No October 29 3:47pm Insurance Providers Guarantor Sneha James Address [address] [address] Contact Info. Home Phone: Payer Policy Id Subscriber's Name Subscriber Id Effectiv e Date Expiration Date [facility] [id number] Sneha James [id number] Medicare [id number] Sneha James [id number] Encounters Encounter Location(s) Arrival/Admit Date Discharge/Depart Date Provider(s) Departed Referred -[facility] May 20, 2025 2:00am May 20, 2025 2:01am Radha Gunter MD Departed Referred -[facility] May 21, 2025 9:00am May 21, 2025 9:01am Radha Gunter MD Plan of Treatment Future Tests Future scheduled test information is unavailable Pending Tests Test Name Ordered Date Scheduled Date Urine Culture May 21, 2025 9:00am Future Visits Future appointment information is unavailable Referrals to Other Providers Referral information is unavailable Future Procedures Procedure Name Ordered Date Scheduled Date Urine Culture May 20, 2025 1:22pm Apr 2:00am Urine Culture May 21, 2025 2:17pm Apr 9:00am Future Medications Future medication information is unavailable Patient Instructions Patient instructions are unavailable
--- OUTSIDE RECORDS SUMMARY | 2025-05-26 09:27 | XMS_ITS | Clinical Summary ---
Author Organization [facility] Address [address] [place] [address] Care Team Providers Care Lacing Cutter Name Role Phone Unavailable Primary Care Provider Unavailabl e Social History Tobacco Use Types Packs/Day Years Used Date Smoking Tobacco: Never Assessed Comments Unknown Sex and Gender Information Value Date Recorded Sex Assigned at Not on file Legal Sex Female 6:40 PM EDT Gender Identity Not on file Sexual Orientation Not on file Last Filed Vital Signs Vital Sign Reading Time Taken Comments Blood Pressure 130/86 09/05/2019 12:00 PM EST Pulse - - Temperature - - Respiratory Rate - - Oxygen Saturation - - Inhaled Oxygen Concentration - - Weight 68.9 kg (152 lb) 09/05/2019 12:00 PM EST Height 160 cm (5' 3 ) 09/05/2019 12:00 PM EST Body Mass Index 26.93 09/05/2019 12:00 PM EST Plan of Treatment Not on file Insurance MEDICARE
--- OUTSIDE RECORDS SUMMARY | 2025-05-26 09:27 | XMS_ITS | Encounter Summary ---
Author Organization [facility] Address [address] [place] [address] Phone Care Team Providers Care Residential Door Installer Name Role Phone William Conde DO Primary Care Provider + [phone] William Conde DO Primary Care Provider + [phone] Encounter Details Date Type Department Care Team (Late st Contact Info) Description 06/11/2021 Orders Only [facility] [address] [place] [address] Conversion, Onbase Social History Tobacco Use Types [...] Description 05/29/2025 10:45 AM EDT Office Visit [facility] [address] [facility] [address] [place] [address] Shannon Almeida MD [address] [facility] [address] [place] [address] Scheduled Orders Name Type Priority Associated Diagnoses Orde r Schedule OUTSIDE LAB SCAN Lab Ordered: 06/11/2021 documented as of this encounter Visit Diagnoses Not on filedocumented in this encounter Care Teams Residential Door Installer Relationship Specialty Start Date End Date William Conde DO PCP - General 02/17/20 08/01/24 William Conde DO [address] [place] [address] PCP - General Internal Medicine 08/02/24 documented as of this encounter
--- OUTSIDE RECORDS SUMMARY | 2025-05-26 09:27 | XMS_ITS | Encounter Summary ---
Author Organization [facility] Address [address] [place] [address] Phone Care Team Providers Care Flight Hostess Name Role Phone William Conde DO Primary Care Provider + [phone] Encounter Details Date Type Department Care Team (Late st Contact Info) Description 11/07/2024 Scanned Document [facility] [address] [place] [phone] Scanning, Generic Provider Social History Tobacco Use [...] Description 05/29/2025 10:45 AM EDT Office Visit [facility] [address] [facility] [address] [place] [address] Shannon Almeida MD [address] [facility] [address] [place] [address] documented as of this encounter Visit Diagnoses Not on filedocumented in this encounter Additional Health Concerns Assessment Noted Time A fall risk assessment has been complete d for the patient 10/28/2024 1:23 PM EST documented as of this encounter Care Teams Flight Hostess Relationship Specialty Start Date End Date William Conde DO [address] [place] [address] PCP - General Internal Medicine 08/02/24 documented as of this encounter
--- OUTSIDE RECORDS SUMMARY | 2025-05-26 09:27 | XMS_ITS | Clinical Summary ---
Author Organization [facility] Address [id number] [address] 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, thoracic Discharge Disposition: Home 04/25/2025 Travel 03/03/2025 12:54 PM EDT - 03/03/2025 11:59 PM EDT Hospital Encounter [facility] [address] [place] [address] Visit for screening mammogram Discharge Disposition: Home [...] 11/08/2023 10:24 AM EDT Plan of Treatment Health Maintenance Due Date Last Done Comments Tobacco Counseling 1955 Depression Screening 1966 Tobacco Screening 1966 DTaP,Tdap and Td Vaccines (1 - Tdap) 1973 Zoster (Shingles) Vaccine (1 of 2) 2004 Fall Risk Screening 2019 Adult BMI Screening 11/07/2024 11/08/2023 Influenza Vaccine 04/28/2025 06/15/2022, , 06/11/2021, Additional history exists COVID-19 Vaccine Completed 01/28/2025, 01/2024, 01/05/2024, Additional history exists Medical Devices Implanted Type Area Soccer Commentator Device Identifier Shelf Expiration Date Model / [...] 03/03/2025 2:35 PM EDT JOSUÉ SANTILLAN 1955 [id number] EXAM: MAMM SCREENING BILATERAL W CAD, 03/03/2025 [...] MAMM 1 YR FDA Accredited Performing Facility: [facility] [address] [place] [address] Procedure Note Dany Burt MD - 03/03/2025 JOSUÉ SANTILLAN 1955 [id number] EXAM: MAMM SCREENING BILATERAL W CAD, 03/03/2025 [...] and family medical history was usedcalculate their [facility] lifetime risk of malignancy. Scores less than20% are not considered high risk per ACR guidelines and patient shouldcontinue with the above recommendation. Finalized by Dany Burt MD on 03/03/2025 2:35 PM 2 b MAMM 1 YR FDA Accredited Performing Facility: [facility] [address] [facility] [address] William Conde Jr., DO IMG MAMMOGRAPHY ORDERAB LES Final Result from Last 3 Months Insurance MED[employer]ARE [employer] [place] Care Teams Printed Circuit Board Drafter Relationship Specialty Start Date End Date William Conde Jr., DO [facility] [place] [phone] PCP - General Internal Medicine 01/17/17
--- OUTSIDE RECORDS SUMMARY | 2025-05-26 09:27 | XMS_ITS | Encounter Summary ---
Author Organization [facility] Address [address] [place] [address] Phone Care Team Providers Care Jammer Hooker Name Role Phone William Conde DO Primary Care Provider + [phone] Encounter Details Date Type Department Care Team (Late Contact Info) Description 08/07/2024 Scanned Document [facility] [address] [place] [id number] Scanning, Generic Provider Social History Tobacco Use [...] Office Visit [facility] [address] [facility] [address] [place] [address] Shannon Almeida MD [address] [facility] [address] [place] [address] documented as of this encounter [...] documented as of this encounter Care Teams Jammer Hooker Relationship Specialty Start Date End Date William Conde DO [address] [place] [address] PCP - General Internal Medicine 08/02/24 documented as of this encounter
--- OUTSIDE RECORDS SUMMARY | 2025-05-26 09:27 | XMS_ITS | Clinical Summary ---
Author Organization [facility] Address [address] [place] [address] Phone Care Team Providers Care Paramedical Aide Name Role Phone RosauraWilliam jimenez Radhames LANDRY Primary Care Provider [phone] Allergies Active Allergy Reactions Criticality Noted Date Comments Carvedilol Itching Medium 05/03/2023 Doxycycline Itching Medium 05/03/2023 Penicillins Anaphylaxis High 05/03/2023 Prednisone Unknown High 05/03/2023 Medications albuterol 90 mcg/actuation inhaler Inhale if needed. Active baclofen (Lioresal) 10 mg tablet Take by mouth if needed. Active denosumab (Prolia) 60 mg/mL syringe Inject under the skin. inject every 6 months Active HYDROcodone-acetami nophen ([place]) 5-325 mg tablet TAKE 1 TABLET EVERY [...] by mouth once daily. Active fish oil ([place]-3) 60-90-500 mg capsuleIndications: Essential hypertriglyceridemi a,Mixed hyperlipidemia [...] Description 05/29/2025 10:45 AM EDT Office Visit [address] [place] [address] Shannon Almeida MD 917 [facility] [address] [place] [address] Health Maintenance Due Date Last Done Comments [...] EDT) Creatinine 0.92 0.50 - 1.05 mg/dL [facility] GLOMERULAR FILTRATION RATE-NON >60 >60 mL/min/1.7 3m2 [facility] GLOMERULAR FILTRATION RATE- >60 >60 mL/min/1.7 3m2 [facility] Comment: CALCULATIONS OF ESTIMATED GFR ARE PERFORMED USING THE MDRD STUDY EQUATION FOR THE IDMS-TRACEABLE CREATININE METHODS. CLIN CHEM 2007;53:766-72 02/17/2020 12:0 2 PM EDT 02/17/2020 5:41 PM EDT Hiram Leyva MD LAB BLOOD ORDERABLES Final Result [facility] * (ABNORMAL) Electrolyte Panel (02/17/2020 12:02 PM EDT) Sodium 131(L) 136 - 145 mmol/L [facility] Potassium 3.9 3.5 - 5.3 mmol/L [facility] Chloride 93(L) 98 - 107 mmol/L [facility] Bicarbonate 30 21 - 32 mmol/L [facility] Anion Gap 12 10 - 20 mmol/L [facility] 02/17/2020 12:0 2 PM EDT 02/17/2020 5:41 PM EDT Hiram Leyva MD LAB BLOOD ORDERABLES Final Result [facility] from Last 3 Months or Most Recently Relevant to Health Maintenance Insurance MEDICARE PART A AND B [employer] [place] MEDICARE SUPPLEMENT MEDICARE PART A AND B [employer] [place] MEDICARE SUPPLEMENT Care Teams Paramedical Aide Relationship Specialty Start Date End Date William Conde DO [address] [place] [address] PCP - General Internal Medicine 08/02/24
[2025-05-26 10:07] LABS: Anion Gap 14.0; Blood Urea Nitrogen 30.0 mg/dL (7.0-18.0); Calcium 9.6 mg/dL (8.5-10.1); Carbon Dioxide 29.1 mmol/L (21.0-32.0); Chloride 97 mmol/L (98-107); Estimated GFR (African America 46 (>=60 mL/min/1.73m^2); Estimated GFR (Non-African Ame 38 (>=60 mL/min/1.73m^2); Glucose 126 mg/dL (74-106); Potassium 4.1 mmol/L (3.5-5.1); Sodium 136 mmol/L (136-145)
== END 2025-05-26 09:19 | disposition home or self-care (01) ==
PROVIDERS: PCP Internal Medicine; Visit Provider Internal Medicine
DX: I50.9 Heart failure, unspecified (principal)
CPT/HCPCS: 36415; 80048

== ENCOUNTER 2025-06-05 13:25 | Outpatient (OUT) | payer MEDICARE, OTHER, SELFPAY ==
--- NOTE | 2025-06-05 13:30 | MR_ITS ---
[place] [id number] Patient Name: JOSUÉ SANTILLAN MRN: [id number] date: 1955 Sex: F Assigned Patient Location: MRI Current Patient Location: MRI Accession/Order Number: [id number] Exam Date: 06/05/2025 13:45 Report Date: 06/05/2025 16:14 At the request of: NON-STAFF PHYSICIAN Procedure: MR thoracic spine wo con MRI of the thoracic spine performed without contrast INDICATION: Chronic thoracic and lumbar pain COMPARISON: None FINDINGS: The thoracic vertebral heights are maintained. Dobr-zh-dltrnpyn intervertebral space narrowing T6-T10. Mild multilevel facet arthropathy. Thoracic cord demonstrate normal signal and morphology. T1-T6: No significant disease central canal or neural from narrowing identified. T6-T7: Small left central bulge. Mild facet arthropathy. Canal and neural foramina patent. T7-T8: Left central/paracentral disc osteophyte complex causes ventral indentation of the thecal sac. Mild facet arthropathy. Canal and foramina otherwise patent. T8-T10: Broad-based disc bulge with eowa-ov-lykqcuhz facet arthropathy. Minor canal narrowing. Mild foraminal narrowing. T10-L1: No significant disease central canal or neural from narrowing identified. MR/MR thoracic spine wo con IMPRESSION: Mild degenerative changes notably from T7 through T10 without high-grade canal or neural foraminal narrowing identified. Impression dictated by: Olivier Gallardo M.D. 06/05/2025 4:14 PM Dictation Location: [place] [address] Electronically authenticated by: [id number] Y Date: 06/05/2025 16:14
--- NOTE | 2025-06-05 13:30 | MR_ITS ---
The [address] [address] Patient Name: JOSUÉ SANTILLAN MRN: [id number] date: 1955 Sex: F Assigned Patient Location: MRI Current Patient Location: MRI Accession/Order Number: [id number] Exam Date: 06/05/2025 13:45 Report Date: 06/05/2025 16:23 At the request of: NON-STAFF PHYSICIAN Procedure: MR lumbar spine wo con MRI lumbar spine performed without contrast INDICATION: Chronic lumbar pain COMPARISON: None FINDINGS: Minimal levocurvature. Otherwise, the Lumbar vertebral heights, alignment and bone marrow signal is unremarkable. Grade 1 anterolisthesis L3 on L4 and L4 on L5 noted measuring 3 mm and 3 mm respectively. Minimal intervertebral space narrowing L3-L5. Conus medullaris terminates normally at L1-L2. Paraspinal soft tissues are unremarkable. T12-L2: Disc desiccation. No focal protrusion. Canal neural foramina patent. L2-3: Minor broad-based bulge and facet arthropathy. Canal and neural foramen are patent. L3-L4: 3 mm anterolisthesis with uncovering the posterior disc. Unfc-zf-plwrwigo facet arthropathy and ligamentum flavum hypertrophy. There is ojcu-os-imipestr central canal and mild reticular recess crowding. Mild left dmlw-gr-jgmudgsl right neural foraminal narrowing. L4-5: Broad-based disc bulge with anterolisthesis uncovering the posterior disc noted. Moderate facet arthropathy. Moderate central canal and moderate foraminal narrowing identified. There is moderate crowding both subarticular zones L5-S1: Unremarkable disc. No focal protrusion. Mild to moderate facet arthropathy. Canal and foramina are patent. MR/MR lumbar spine wo con IMPRESSION: Multilevel prominent posterior element degenerative changes notably from L3 through L5. There is up to moderate canal and foraminal narrowing identified at L4-5. No high-grade canal or neural foramen narrowing identified Impression dictated by: Olivier Gallardo M.D. 06/05/2025 4:23 PM Dictation Location: [place] [address] Electronically authenticated by: [id number] Y Date: 06/05/2025 16:23
== END 2025-06-05 13:26 | disposition home or self-care (01) ==
LOC: MRI 13:25
PROVIDERS: PCP Internal Medicine
DX: M51.14 Intervertebral disc disorders with radiculopathy, thoracic region (principal); M51.17 Intervertebral disc disorders with radiculopathy, lumbosacral region; M51.369 Other intervertebral disc degeneration, lumbar region without mention of lumbar back pain or lower extremity pain; M51.34 Other intervertebral disc degeneration, thoracic region
CPT/HCPCS: 72146; 72148